=== PATIENT | female | born 1950 | race Caucasian/White ===

== ENCOUNTER 2016-12-15 13:11 | Emergency (ER) | payer MEDICARE, OTHER ==
--- NOTE | 2016-12-15 13:42 | ERPHSYRPT ---
- History of Present Illness Time Seen by Provider: 12/15/16 13:20 Source: patient Patient Subjective Stated Complaint: marylou has had leg swelling in left leg over past two weeeks, has hx of venous insufficiency in both legs Triage Nursing Assessment: pt alert nad orientedx3, gait is somewhats shaky because shes not putting full pressure on left side and right knee is only 7mths out from knee replacement. able to ambulate self from waiting room to bed. pedal pulses present bilateral lower extremities. left leg is swollen and wamr to touch Physician History: CC: left leg swelling Hx: 66 y/o patient of Dr Meenu Villegas. She has left leg swelling worsened over a few weeks. No known injury. She has been sitting a lot with her ill . Hx of osteoarthritis. No hx of venous thromboembolic disease. No chest pain. Some left calf pain. Allergies/Adverse Reactions: esomeprazole [From Nexium] Allergy (Verified 12/15/16 13:18) meloxicam [From Mobic] Allergy (Verified 12/15/16 13:18) Hx Tetanus, Diphtheria Vaccination/Date Given: Yes Hx Influenza Vaccination/Date Given: Yes Hx Pneumococcal Vaccination/Date Given: Yes Immunizations Up to Date: Yes - Review of Systems Constitutional: No Symptoms Respiratory: No Dyspnea Cardiac: Edema (left leg), No Chest Pain Musculoskeletal: No Injury, No Joint Pain Neurological: No Focal Weakness, No Parasthesia All Other Systems: Reviewed and Negative - Past Medical History Pertinent Past Medical History: Yes Neurological History: Migraines, Other Cardiac History: High Cholesterol, Hypertension Musculoskeletal History: Osteoarthritis Other Medical History: right total knee replacement. left hip replacement. - Past Surgical History Past Surgical History: Yes Musculoskeletal: Orthopedic Surgery Female Surgical History: Hysterectomy - Social History Smoking Status: Never smoker Drug Use: none - Nursing Vital Signs Nursing Vital Signs: Initial Vital Signs Temperature 99 F Temperature Source Oral Pulse Rate 73 Respiratory Rate 20 Blood Pressure [] 152/83 Pain Intensity 0 - Physical Exam General Appearance: alert Eyes, Ears, Nose, Throat Exam: normal ENT inspection, moist mucous membranes Neck Exam: normal inspection, non-tender, supple Cardiovascular/Respiratory Exam: normal breath sounds, regular rate/rhythm Gastrointestinal/Abdominal Exam: non-tender, soft Hips Exam: left: non-tender, normal inspection Knees Exam: left knee: non-tender, normal inspection Ankle Exam: left ankle: non-tender, normal inspection Foot Exam: left foot: non-tender, normal inspection Neuro/Tendon Exam: normal sensation, normal motor functions Mental Status Exam: alert, oriented x 3, cooperative Skin Exam: warm, dry, No rash SpO2 Interpretation: normal SpO2: 97 Oxygen Delivery: Room Air Comments: left leg has some diffuse edema, some calf tenderness, no redness. Pulses intact. - Course Nursing assessment & vital signs reviewed: Yes - Radiology Ultrasound Exam left leg Ultrasound: Other (no DVT per Tech. There is calf fluid suggestive of soft tissue injury.) Ordered Tests: Active Orders 24 hr Category Date Time Status VENOUS UNILAT/LIMITED EXTREMIT [US] Stat Exams 12/15/16 13:38 Ordered BMP Stat Lab 12/15/16 13:49 Completed CBC Stat Lab 12/15/16 13:49 Completed Lab/Rad Data: Laboratory Result Diagrams 12/15/16 13:49 12/15/16 13:49 Laboratory Results 12/15/16 12/15/16 Range/Units 13:49 13:49 WBC 8.4 (4.0-10.5) K/mm3 RBC 3.74 L (4.1-5.4) M/mm3 Hgb 10.3 L (12.0-16.0) gm/dl Hct 33.4 L (35-47) % MCV 89.3 (78-100) fl MCH 27.5 (26-32) pg MCHC 30.8 L (32-36) g/dl RDW 14.7 H (11.5-14.0) % Plt Count 407 (150-450) K/mm3 MPV 9.1 (6-9.5) fl Sodium 137 (136-145) mEq/L Potassium 4.1 (3.5-5.1) mEq/L Chloride 102 (98-107) mEq/L Carbon Dioxide 24.6 (21-32) mEq/L Anion Gap 14.6 (5-15) MEQ/L BUN 20 (9-20) mg/dL Creatinine 0.84 (0.55-1.30) mg/dl Estimated GFR > 60 ML/MIN Glucose 118 H (70-110) MG/DL Calcium 9.0 (8.5-10.1) mg/dL - Progress Progress Note: 12/15/16 13:42 Will get venous doppler to rule out DVT. 12/15/16 14:16 Advised ice, rest, aleve. Advised anemia and needs follow up with Dr Villegas. Counseled pt/family regarding: lab results, diagnosis, need for follow-up - Departure Time of Disposition: 14:17 Departure Disposition: Home Clinical Impression: Sprain of left lower leg, Anemia Condition: Stable Critical Care Time: No Referrals: MEENU VILLEGAS [Primary Care Provider] - Instructions: Calf Muscle Strain Additional Instructions: Ice off and on. Rest. Aleve twice a day with food. Call to see Dr Villegas next week for recheck and to discuss anemia.
[2016-12-15 13:59] LABS: Mean Cell Volume 89.3 fl (78-100); Mean Corpuscular Hemoglobin 27.5 pg (26-32); Mean Platelet Volume 9.1 fl (6-9.5); Platelet Count 407 K/mm3 (150-450); Red Blood Count 3.74 M/mm3 (4.1-5.4); Red Cell Distribution Width 14.7 % (11.5-14.0); White Blood Count 8.4 K/mm3 (4.0-10.5)
[2016-12-15 14:02] LABS: ANION GAP 14.6 MEQ/L (5-15); BLOOD UREA NITROGEN 20 mg/dL (9-20); CHLORIDE 102 mEq/L (98-107); Carbon Dioxide 24.6 mEq/L (21-32); Glucose 118 MG/DL (70-110); Potassium 4.1 mEq/L (3.5-5.1); SODIUM 137 mEq/L (136-145)
[2016-12-15 14:31] VITALS: BP 130/70; PULSE 70; O2SAT 100
--- NOTE | 2016-12-15 15:08 | XRAY ---
Indication: Left leg swelling. Two-dimensional sonogram and color Doppler imaging of the major venous vessels of the left leg was performed. Comparison: None No thrombus seen in the examined deep venous vessels of the left leg including greater saphenous vein. Veins demonstrate normal compressibility. Venous waveforms are normal with and without augmentation. There is a elongated fluid collection in the deep soft tissues of the medial calf at least 1.4 cm in thickness. Impression: 1. Left leg negative for DVT. 2. Nonspecific fluid collection in the deep soft tissues of the medial calf. Correlate clinically. Outpatient MRI may yield further information if there remains further clinical concern. Comment: Preliminary report was given.
== END 2016-12-15 14:31 | disposition home or self-care (01) ==
LOC: ED 13:11
DX: S86.912A Strain of unspecified muscle(s) and tendon(s) at lower leg level, left leg, initial encounter (principal); M79.662 Pain in left lower leg; E78.00 Pure hypercholesterolemia, unspecified; I10 Essential (primary) hypertension; Z96.651 Presence of right artificial knee joint; Z96.642 Presence of left artificial hip joint
CPT/HCPCS: 36415; 80048; 85027; 93971; 99283; 99284

== ENCOUNTER 2017-04-22 09:46 | Emergency (ER) | payer MEDICARE, OTHER ==
[2017-04-22] MEDS ORDERED: Sodium Chloride 0.9% 1000 ML 1,000 ML IV STA (10:09)
[2017-04-22] MEDS ORDERED: MORPHINE SULFATE 2 MG INJ IV ONE (10:09)
[2017-04-22] MEDS ORDERED: Zofran 4 MG/2 ML VIAL IV ONE (10:09)
--- NOTE | 2017-04-22 10:11 | ERPHSYRPT ---
- History of Present Illness Time Seen by Provider: 04/22/17 10:05 Historian: patient Exam Limitations: no limitations Patient Subjective Stated Complaint: vomiting for three days. denies diarrhea. hx of stomach problems. states has chronic knee pain and right arm numb. Triage Nursing Assessment: arrives per ems cot. skin w/d, pale, resp easy. vomiting several times a day for three days. denies diarrhea. iv left hand per ems with saline infusing. abd soft, normal bowel sounds. Physician History: 67 y/o female comes to the ER with complaints of diffuse abdominal pain, nausea and vomiting for the past 3 days. Pt admits to having 12 episodes of vomiting today. Pt describes the pain as sharp, constant, 9/10, and pt has not taken any pain meds. Pt says that she has had this type of pain before. Pt denies any fever, chills, constipation, diarrhea, or urinary symptoms. Timing/Duration: day(s) Activities at Onset: none Quality: sharpness Abdominal Pain Onset Location: generalized abdomen Pain Radiation: no radiation Severity of Pain-Max: severe Severity of Pain-Current: severe Modifying Factors: Improves With: nothing Associated Symptoms: nausea, vomiting, weakness Allergies/Adverse Reactions: esomeprazole [From Nexium] Allergy (Verified 12/15/16 13:18) levofloxacin Allergy (Verified 04/22/17 10:28) meloxicam [From Mobic] Allergy (Verified 12/15/16 13:18) olsalazine [From Dipentum] Allergy (Verified 04/22/17 10:53) zolmitriptan [From Zomig] Allergy (Verified 04/22/17 10:53) azithromycin [From Zithromax] Adverse Reaction (Verified 04/22/17 10:53) Home Medications: Atorvastatin Calcium [Lipitor 20MG Tablet] 20 mg PO DAILY 04/22/17 [History] Baicalin/Catechin/Citrated Znc [[id number] Capsule] 1 each PO BID 04/22/17 [ History] Calcium Carbonate [Antacid Calcium] 500 mg PO BID 04/22/17 [History] Calcium Carbonate/Vitamin D3 [Calcium 500 + Vit D 200 Tablet] 1 each PO DAILY [History] Famotidine 40 mg PO DAILY 04/22/17 [History] Hydrocortisone [Cortef] 30 mg PO BID 04/22/17 [History] Lidocaine HCl 2% Jelly [Xylocaine 2% JELLY] 5 ml MM BID 04/22/17 [History] Magnesium Oxide 500 mg PO DAILY 04/22/17 [History] Metoprolol Tartrate 25 mg PO BID 04/22/17 [History] Milk Thistle 200 mg PO DAILY 04/22/17 [History] Multivitamin [Multivitamins] 1 each PO DAILY 04/22/17 [History] Pantoprazole Sodium [Protonix] 40 mg PO DAILY 04/22/17 [History] Rizatriptan Benzoate [Maxalt] 10 mg PO UD 04/22/17 [History] Topiramate 100 mg [Topamax 100 MG] 100 mg PO HS 04/22/17 [History] Tramadol HCl 50 mg [Ultram 50 mg] 50 mg PO TID 04/22/17 [History] Zolpidem Tartrate [Ambien] 5 mg PO HS 04/22/17 [History] Hx Tetanus, Diphtheria Vaccination/Date Given: Yes Hx Influenza Vaccination/Date Given: No (2015) Hx Pneumococcal Vaccination/Date Given: Yes Immunizations Up to Date: No - Review of Systems Constitutional: No Fever, No Chills Eyes: No Symptoms Ears, Nose, & Throat: No Symptoms Respiratory: No Cough, No Dyspnea Cardiac: No Chest Pain, No Edema, No Syncope Abdominal/Gastrointestinal: Abdominal Pain, Nausea, Vomiting, No Diarrhea, No Constipation, No Hematemesis Genitourinary Symptoms: No Dysuria Musculoskeletal: No Back Pain, No Neck Pain Skin: No Rash Neurological: No Dizziness, No Focal Weakness, No Sensory Changes Psychological: No Symptoms Endocrine: No Symptoms All Other Systems: Reviewed and Negative - Past Medical History Pertinent Past Medical History: Yes Neurological History: Migraines, Other Cardiac History: High Cholesterol, Hypertension Musculoskeletal History: Osteoarthritis GI Medical History: Ulcer Other Medical History: right total knee replacement. left hip replacement. - Past Surgical History Past Surgical History: Yes Musculoskeletal: Orthopedic Surgery Female Surgical History: Hysterectomy - Social History Smoking Status: Never smoker Exposure to second hand smoke: Yes Drug Use: none Patient Lives Alone: No - Nursing Vital Signs Nursing Vital Signs: Initial Vital Signs Temperature 98 F 04/22/17 09:47 Pulse Rate 97 H 04/22/17 09:47 Respiratory Rate 16 04/22/17 09:47 Blood Pressure 131/91 04/22/17 09:47 O2 Sat by Pulse Oximetry 100 04/22/17 09:47 Pain Scale Pain Intensity 5 - Physical Exam General Appearance: no apparent distress, alert Eye Exam: PERRL/EOMI, eyes nml inspection Ears, Nose, Throat Exam: normal ENT inspection, pharynx normal, moist mucous membranes Neck Exam: normal inspection, non-tender, supple, full range of motion Respiratory Exam: normal breath sounds, lungs clear, No respiratory distress Cardiovascular Exam: regular rate/rhythm, normal heart sounds Gastrointestinal/Abdomen Exam: soft, normal bowel sounds, tenderness, distention , No mass Back Exam: normal inspection, normal range of motion, No CVA tenderness, No vertebral tenderness Extremity Exam: normal inspection, normal range of motion, pelvis stable Neurologic Exam: alert, oriented x 3, cooperative, normal mood/affect, nml cerebellar function, sensation nml, No motor deficits Skin Exam: normal color, warm, dry SpO2: 100 Oxygen Delivery: Room Air - Course Nursing assessment & vital signs reviewed: Yes Ordered Tests: Active Orders 24 hr Category Date Time Status IV Insertion STAT Care 04/22/17 10:09 Active ABDOMEN AND PELVIS W CONTRAST [CT] Stat Exams 04/22/17 10:09 Taken AMYLASE Stat Lab 04/22/17 10:35 Completed CBC W DIFF Stat Lab 04/22/17 10:35 Completed CMP Stat Lab 04/22/17 10:35 Completed CULTURE,URINE Stat Lab 04/22/17 10:50 Received LIPASE Stat Lab 04/22/17 10:35 Completed Lactic Acid Stat Lab 04/22/17 10:09 Completed UA W/ MICROSCOPIC Stat Lab 04/22/17 10:50 Completed Medication Summary Discontinued Medications Generic Name Dose Route Start Last Admin Trade Name Freq PRN Reason Stop Dose Admin Sodium Chloride 1,000 mls @ 999 mls/hr 04/22/17 10:09 04/22/17 10:39 Sodium Chloride 0.9% 1000 Ml IV 04/22/17 11:09 999 mls/hr .Q1H1M STA Administration Sodium Chloride Confirm 04/22/17 10:29 Sodium Chloride 0.9% 1000 Ml Administered 04/22/17 10:30 Dose 1,000 mls @ ud .ROUTE .STK-MED ONE Potassium Chloride 20 meq in 100 mls @ 50 mls/hr 04/22/17 11:23 04/22/17 11: 31 Potassium Chloride 20 Meq In Water 100ml IV 04/22/17 13:22 50 mls/hr STAT ONE Administration Potassium Chloride Confirm 04/22/17 11:30 Potassium Chloride 20 Meq In Water 100ml Administered 04/22/17 11:31 Dose 100 mls @ ud IV .STK-MED ONE Sodium Chloride Confirm 04/22/17 12:27 Sodium Chloride 0.9% 1000 Ml Administered 04/22/17 12:28 Dose 1,000 mls @ ud .ROUTE .STK-MED ONE Ketorolac Tromethamine 30 mg 04/22/17 13:06 04/22/17 13:10 Toradol 30 Mg Injection IV 04/22/17 13:07 30 mg STAT ONE Administration Ketorolac Tromethamine Confirm 04/22/17 13:09 Toradol 30 Mg Injection Administered 04/22/17 13:10 Dose 30 mg .ROUTE .STK-MED ONE Morphine Sulfate 2 mg 04/22/17 10:09 04/22/17 10:38 Morphine Sulfate 2 Mg Inj IV 04/22/17 10:10 2 mg STAT ONE Administration Morphine Sulfate Confirm 04/22/17 10:29 Morphine Sulfate 2 Mg Inj Administered 04/22/17 10:30 Dose 2 mg .ROUTE .STK-MED ONE Ondansetron HCl 4 mg 04/22/17 10:09 04/22/17 10:38 Zofran 4 Mg/2 Ml Vial IV 04/22/17 10:10 4 mg STAT ONE Administration Ondansetron HCl Confirm 04/22/17 10:28 Zofran 4 Mg/2 Ml Vial Administered 04/22/17 10:29 Dose 4 mg .ROUTE .STK-MED ONE Lab/Rad Data: Laboratory Result Diagrams 04/22/17 10:35 04/22/17 10:35 Laboratory Results 04/22/17 04/22/17 04/22/17 Range/Units 10:50 10:35 10:35 WBC 9.8 (4.0-10.5) K/mm3 RBC 4.10 (4.1-5.4) M/mm3 Hgb 11.1 L (12.0-16.0) gm/dl Hct 36.3 (35-47) % MCV 88.5 (78-100) fl MCH 27.0 (26-32) pg MCHC 30.6 L (32-36) g/dl RDW 16.1 H (11.5-14.0) % Plt Count 384 (150-450) K/mm3 MPV 9.3 (6-9.5) fl Gran % 72.9 H (36.0-66.0) % Lymphocytes % 18.5 L (24.0-44.0) % Monocytes % 7.5 (0.0-12.0) % Eosinophils % 0.8 (0.00-5.0) % Basophils % 0.3 (0.0-0.4) % Basophils # 0.03 (0-0.4) Sodium 143 (136-145) mEq/L Potassium 2.8 L* (3.5-5.1) mEq/L Chloride 105 (98-107) mEq/L Carbon Dioxide 24.6 (21-32) mEq/L Anion Gap 16.7 H (5-15) MEQ/L BUN 12 (9-20) mg/dL Creatinine 0.67 (0.55-1.30) mg/dl Estimated GFR > 60 ML/MIN Glucose 83 (70-110) MG/DL Lactic Acid (0.4-2.0) Calcium 8.8 (8.5-10.1) mg/dL Total Bilirubin 0.40 (0.2-1.0) mg/dL AST 15 (15-37) U/L ALT 20 (12-78) U/L Alkaline Phosphatase 75 (46-116) U/L Serum Total Protein 6.4 (6.4-8.2) gm/dL Albumin 3.6 (3.4-5.0) g/dL Amylase 36 (25-115) U/L Lipase 166 (73-393) U/L Ur Collection Type CCMS Urine Color YELLOW (YELLOW) Urine Appearance CLEAR (CLEAR) Urine pH 8.0 (5-6) Ur Specific [place] 1.005 (1.005-1.025) Urine Protein NEGATIVE (Negative) Urine Ketones LARGE (NEGATIVE) Urine Blood 5-10 (0-5) Luke/ul Urine Nitrite NEGATIVE (NEGATIVE) Urine Bilirubin NEGATIVE (NEGATIVE) Urine Urobilinogen NORMAL (0-1) mg/dL Ur Leukocyte Esterase TRACE (NEGATIVE) Urine Microscopic RBC 0-2 (0-2) /HPF Urine Microscopic WBC 0-2 (0-5) /HPF Ur Epithelial Cells RARE (FEW) /HPF Urine Bacteria FEW (NEGATIVE) /HPF Urine Mucus SLIGHT (NEGATIVE) /HPF Urine Culture Reflexed YES (NO) Urine Glucose NEGATIVE (NEGATIVE) mg/dL Specimen Received 1055 04/22/17 04/22/17 Range/Units 10:09 WBC (4.0-10.5) K/mm3 RBC (4.1-5.4) M/mm3 Hgb (12.0-16.0) gm/dl Hct (35-47) % MCV (78-100) fl MCH (26-32) pg MCHC (32-36) g/dl RDW (11.5-14.0) % Plt Count (150-450) K/mm3 MPV (6-9.5) fl Gran % (36.0-66.0) % Lymphocytes % (24.0-44.0) % Monocytes % (0.0-12.0) % Eosinophils % (0.00-5.0) % Basophils % (0.0-0.4) % Basophils # (0-0.4) Sodium (136-145) mEq/L Potassium (3.5-5.1) mEq/L Chloride (98-107) mEq/L Carbon Dioxide (21-32) mEq/L Anion Gap (5-15) MEQ/L BUN (9-20) mg/dL Creatinine (0.55-1.30) mg/dl Estimated GFR ML/MIN Glucose (70-110) MG/DL Lactic Acid 1.1 (0.4-2.0) Calcium (8.5-10.1) mg/dL Total Bilirubin (0.2-1.0) mg/dL AST (15-37) U/L ALT (12-78) U/L Alkaline Phosphatase (46-116) U/L Serum Total Protein (6.4-8.2) gm/dL Albumin (3.4-5.0) g/dL Amylase (25-115) U/L Lipase (73-393) U/L Ur Collection Type Urine Color (YELLOW) Urine Appearance (CLEAR) Urine pH (5-6) Ur Specific [place] (1.005-1.025) Urine Protein (Negative) Urine Ketones (NEGATIVE) Urine Blood (0-5) Luke/ul Urine Nitrite (NEGATIVE) Urine Bilirubin (NEGATIVE) Urine Urobilinogen (0-1) mg/dL Ur Leukocyte Esterase (NEGATIVE) Urine Microscopic RBC (0-2) /HPF Urine Microscopic WBC (0-5) /HPF Ur Epithelial Cells (FEW) /HPF Urine Bacteria (NEGATIVE) /HPF Urine Mucus (NEGATIVE) /HPF Urine Culture Reflexed (NO) Urine Glucose (NEGATIVE) mg/dL Specimen Received - Progress Progress: improved Progress Note: 04/22/17 14:[address] abd/pelvis shows gastric wall thickening and constipation. The patient has a K of 2.8. The rest of the labs are within normal limits. The [facility] and the patient has been accepted by ER doctor, Dr Nuñez [facility]. - Departure Time of Disposition: 14:32 Departure Disposition: Transfer Clinical Impression: Abdominal pain Qualifiers: Abdominal location: unspecified location Qualified Code(s): R10.9 - Unspecified abdominal pain Condition: Stable Critical Care Time: Yes Critical Care Time(excluding separately billable procedures): 75-104 minutes Referrals: CAROL COX [Primary Care Provider] -
[2017-04-22] MEDS ORDERED: Zofran 4 MG/2 ML VIAL ONE (10:28)
[2017-04-22] MEDS ORDERED: MORPHINE SULFATE 2 MG INJ ONE (10:29)
[2017-04-22] MEDS ORDERED: Sodium Chloride 0.9% 1000 ML 1,000 ML ONE ×2 (10:29→12:27)
[2017-04-22] MEDS ORDERED: Sodium Chloride 0.9% 1000 ML 1,000 ML IV SCH (10:35)
[2017-04-22 10:55] LABS: BASOPHIL % 0.3 % (0.0-0.4); Eosinophil % 0.8 % (0.00-5.0); Granulocytes % 72.9 % (36.0-66.0); Lymphocytes % 18.5 % (24.0-44.0); Mean Cell Volume 88.5 fl (78-100); Mean Platelet Volume 9.3 fl (6-9.5); Monocytes % 7.5 % (0.0-12.0); Platelet Count 384 K/mm3 (150-450); Red Cell Distribution Width 16.1 % (11.5-14.0); White Blood Count 9.8 K/mm3 (4.0-10.5)
[2017-04-22 11:07] LABS: ALBUMIN 3.6 g/dL (3.4-5.0); ALKALINE PHOSPHATASE 75 U/L (46-116); ANION GAP 16.7 MEQ/L (5-15); BLOOD UREA NITROGEN 12 mg/dL (9-20); CHLORIDE 105 mEq/L (98-107); Carbon Dioxide 24.6 mEq/L (21-32); Glucose 83 MG/DL (70-110); LIPASE 166 U/L (73-393); SGOT/AST 15 U/L (15-37); SGPT/ALT 20 U/L (12-78); SODIUM 143 mEq/L (136-145); Total Protein 6.4 gm/dL (6.4-8.2)
[2017-04-22 11:09] LABS: Potassium 2.8 mEq/L (3.5-5.1)
[2017-04-22 11:16] LABS: Bilirubin NEGATIVE (NEGATIVE); Collection Type CCMS; Glucose NEGATIVE (NEGATIVE); Leukocyte Esterase TRACE (NEGATIVE)
[2017-04-22 11:17] LABS: COMPLETE URINE MICROSCOPIC? YES
[2017-04-22 11:22] LABS: ADD URINE CULTURE? YES (NO); Bacteria FEW /HPF (NEGATIVE); Epithelial Cells RARE /HPF (FEW); Mucus SLIGHT /HPF (NEGATIVE); WBC 0-2 /HPF (0-5)
[2017-04-22] MEDS ORDERED: POTASSIUM CHLORIDE 20 mEq IN WATER 100ML 20 MEQ/100 ML BAG IV ONE (11:23)
[2017-04-22] MEDS ORDERED: POTASSIUM CHLORIDE 20 mEq IN WATER 100ML 100 ML IV ONE (11:30)
[2017-04-22] MEDS ORDERED: TORAdol 30 mg Injection IV ONE (13:06)
[2017-04-22] MEDS ORDERED: TORAdol 30 mg Injection ONE (13:09)
[2017-04-22 14:19] VITALS: BP 138/52; PULSE 93
[2017-04-22 14:33] VITALS: O2SAT 100
--- NOTE | 2017-04-22 20:18 | XRAY ---
Indication: Upset stomach. Nausea and vomiting. History of ulcers. Multiple contiguous axial images obtained through the abdomen and pelvis using 80 cc Isovue 370 contrast only. Comparison: None. Lung bases demonstrates minimal bibasilar dependent atelectasis. Heart is not enlarged. Stomach is mildly fluid distended with gastric wall thickening either from incomplete distention versus gastritis. Descending duodenal diverticulum. Noncontrasted stomach and bowel loops appear nonobstructed. Moderate diffuse scattered colonic fecal debris throughout. No free fluid/air. Previous hysterectomy. Remaining liver, gallbladder, pancreas, spleen, adrenal glands, kidneys, ureters, and bladder appear unremarkable. Minimal aortoiliac calcifications. No AAA or pathological retroperitoneal lymphadenopathy. Osseous structures intact with moderate degenerative changes throughout spine, double curvature scoliosis, and left hip arthroplasty with bipolar prosthesis producing beam artifact. Impression: 1. Fluid distended stomach with wall thickening either incomplete distention versus gastritis. 2. Fecal stasis without obstruction. 3. Descending duodenal diverticulum. Comment: Preliminary interpretation was made by [facility]. No discrepancy. CTDI 17.73
== END 2017-04-22 15:29 | disposition short-term general hospital (02) ==
LOC: ED 09:46
DX: R10.9 Unspecified abdominal pain (principal); R11.2 Nausea with vomiting, unspecified; R53.1 Weakness; Z79.899 Other long term (current) drug therapy; E78.00 Pure hypercholesterolemia, unspecified; I10 Essential (primary) hypertension
CPT/HCPCS: 36415; 74177; 80053; 81000; 82150; 83605; 83690; 85025; 87086; 96360; 96361; 96365; 96375; 99285; J1885; J2270; J2405; J3480

== ENCOUNTER 2020-05-02 07:38 | Observation (INO) | payer MEDICARE, OTHER ==
[2020-05-02] MEDS ORDERED: MORPHINE SULFATE 4 MG INJ IM ONE (08:02)
[2020-05-02] MEDS ORDERED: Cyclobenzaprine 10 MG PO ONE (08:02)
--- NOTE | 2020-05-02 08:07 | ERPHSYRPT ---
- History of Present Illness Time Seen by Provider: 05/02/20 07:50 Source: patient, EMS Exam Limitations: no limitations Patient Subjective Stated Complaint: PT HERE FOR LOWER BACK PAIN SINCE SUNDAY AFTER WORKING OUTSIDE, SHE ASLO STATES PAIN GOING DOWN BOTH LEGS, SHE HAS CHRONIC BACK PAIN., Triage Nursing Assessment: PT ARRIVED PER AMBULANCE, ALERT, FACE MASK ON, RESP EASY. SKIN W/D/P.PT MOANING, REFUSES TO MOVE WITHOUT MUCH ENCOURAGMENT AND HELP. NO SWELING OR BRUISING NOTED Physician History: 70 years old female with history of chronic back pain, multiple surgeries done in the past in the cervical/thoracic spines with chronic low back pain presented in the ER with worsening low back pain for the last 3 days after she worked in the yard quite a bit. Reports initially it was a stiffness of lower back and g radually worsening to the point she could not get up this morning. She denies loss of bowel or bladder control. No numbness tingling of focal weakness of lower extremities but because of pain she is having difficulty movements. No fall or direct trauma to lower back. Timing/Duration: day(s) (3), gradual onset, worse Quality: sharp Back Pain Location: lumbar spine Back Pain Radiation: buttocks, upper legs Severity of Pain-Max: severe Severity of Pain-Current: severe Modifying Factors: Improves With: immobilization, pain medication, rest. Worsens With: movement Associated Symptoms: lower back pain, muscle spasms, No fever, No chills, No urinary incontinence, No loss of bowel control, No problems urinating, No light- headedness, No numbness in legs/feet, No weakness, No sensory/motor loss Allergies/Adverse Reactions: esomeprazole [From Nexium] Allergy (Verified 05/02/20 07:40) levofloxacin Allergy (Verified 05/02/20 07:40) meloxicam [From Mobic] Allergy (Verified 05/02/20 07:40) olsalazine [From Dipentum] Allergy (Verified 05/02/20 07:40) zolmitriptan [From Zomig] Allergy (Verified 05/02/20 07:40) azithromycin [From Zithromax] Adverse Reaction (Verified 05/02/20 07:40) Home Medications: Atorvastatin Calcium [Lipitor 20MG Tablet] 20 mg PO DAILY 04/22/17 [History] Baicalin/Catechin/Citrated Znc [Oehhdcy320 Capsule] 1 each PO BID 04/22/17 [History] Calcium Carbonate [Antacid Calcium] 500 mg PO BID 04/22/17 [History] Calcium Carbonate/Vitamin D3 [Calcium 500 + Vit D 200 Tablet] 1 each PO DAILY 04/22/17 [History] Famotidine 40 mg PO DAILY 04/22/17 [History] Hydrocortisone [Cortef] 30 mg PO BID 04/22/17 [History] Lidocaine HCl 2% Jelly [Xylocaine 2% JELLY] 5 ml MM BID 04/22/17 [History] Magnesium Oxide 500 mg PO DAILY 04/22/17 [History] Metoprolol Tartrate 25 mg PO BID 04/22/17 [History] Milk Thistle 200 mg PO DAILY 04/22/17 [History] Multivitamin [Multivitamins] 1 each PO DAILY 04/22/17 [History] Pantoprazole Sodium [Protonix] 40 mg PO DAILY 04/22/17 [History] Rizatriptan Benzoate [Maxalt] 10 mg PO UD 04/22/17 [History] Topiramate 100 mg [Topamax 100 MG] 100 mg PO HS 04/22/17 [History] Tramadol HCl 50 mg [Ultram 50 mg] 50 mg PO TID 04/22/17 [History] Zolpidem Tartrate [Ambien] 5 mg PO HS 04/22/17 [History] Hx Tetanus, Diphtheria Vaccination/Date Given: Yes Hx Influenza Vaccination/Date Given: Yes Hx Pneumococcal Vaccination/Date Given: Yes Immunizations Up to Date: Yes Travel Risk - International Travel Have you traveled outside of the country in past 3 weeks: No - Coronavirus Screening Are you exhibiting any of the following symptoms?: No Close contact with a COVID-19 positive Pt in past 14-21 Days: No - Review of Systems Constitutional: No Symptoms Eyes: No Symptoms Ears, Nose, & Throat: No Symptoms Respiratory: No Symptoms Cardiac: No Symptoms Abdominal/Gastrointestinal: No Symptoms Genitourinary Symptoms: No Symptoms Musculoskeletal: Back Pain Skin: No Symptoms Neurological: No Symptoms Psychological: No Symptoms Endocrine: No Symptoms Hematologic/Lymphatic: No Symptoms Immunological/Allergic: No Symptoms - Past Medical History Pertinent Past Medical History: Yes Neurological History: Migraines Cardiac History: High Cholesterol, Hypertension Respiratory History: Pneumonia Endocrine Medical History: No Pertinent History Musculoskeletal History: Degenerative Disk Disease, Osteoarthritis GI Medical History: Ulcer Other Medical History: SURGICAL HX NOTED ABOVE. PATIENT REPORTS HX OF LUMBAR FRACTURE IN THE 80s AND BY DESCRIPTION WAS TRANSVERSE PROCESS - NO SURGERY, WAS BRACED. HX OF ADRENAL INSUFFICIENCY AND ANEMIA. CHRONIC BACK PAIN - Past Surgical History Past Surgical History: Yes Musculoskeletal: Orthopedic Surgery Female Surgical History: Hysterectomy - Social History Smoking Status: Never smoker Exposure to second hand smoke: Yes Drug Use: none Patient Lives Alone: No - Female History Hx Last Menstrual Period: POST Hx Now: No - Nursing Vital Signs Nursing Vital Signs: Initial Vital Signs Temperature 98.5 F 05/02/20 07:41 Pulse Rate 96 H 05/02/20 07:41 Respiratory Rate 18 05/02/20 07:41 Blood Pressure 166/116 05/02/20 07:41 O2 Sat by Pulse Oximetry 99 05/02/20 07:41 Pain Scale Pain Intensity [Back] 10 Pain Intensity 9 - Physical Exam General Appearance: no apparent distress Eye Exam: PERRL/EOMI, eyes nml inspection Ears, Nose, Throat Exam: normal ENT inspection, pharynx normal Neck Exam: normal inspection, supple, full range of motion Respiratory Exam: normal breath sounds, lungs clear Cardiovascular Exam: regular rate/rhythm, normal heart sounds Gastrointestinal Exam: soft, normal bowel sounds, No tenderness Back Exam: vertebral tenderness, decreased range of motion, muscle spasm, point tenderness (Lumbar), No normal range of motion Extremity Exam: normal inspection, pelvis stable, other (Limited range of motion bilateral lower extremities because of pain lower back.) Neurologic Exam: alert, oriented x 3, cooperative, ophthalmologist retina specialist II-XII nml as tested, normal mood/affect, sensation nml, No nml station & gait, No motor deficits Skin Exam: normal color SpO2 Interpretation: normal SpO2: 99 O2 Delivery: Room Air Ordered Tests: Active Orders 24 hr Category Date Time Status IV Insertion STAT Care 05/02/20 09:14 Active LUMBAR SPINE W/O [CT] Stat Exams 05/02/20 08:41 Taken CBC W DIFF Stat Lab 05/02/20 10:09 Received CMP Stat Lab 05/02/20 10:09 Received UA W/RFX UR CULTURE Stat Lab 05/02/20 09:15 Ordered Medication Summary Discontinued Medications Generic Name Dose Route Start Last Admin Trade Name Alvaro PRN Reason Stop Dose Admin Cyclobenzaprine HCl 10 mg 05/02/20 08:02 05/02/20 08:14 Cyclobenzaprine 10 Mg PO 05/02/20 08:03 10 mg STAT ONE Administration Cyclobenzaprine HCl Confirm 05/02/20 08:13 Cyclobenzaprine 10 Mg Administered 05/02/20 08:14 Dose 10 mg .ROUTE .STK-MED ONE Morphine Sulfate 4 mg 05/02/20 08:02 05/02/20 08:14 Morphine Sulfate 4 Mg Inj IM 05/02/20 08:03 4 mg STAT ONE Administration Morphine Sulfate Confirm 05/02/20 08:13 Morphine Sulfate 4 Mg Inj Administered 05/02/20 08:14 Dose 4 mg .ROUTE .STK-MED ONE Morphine Sulfate 4 mg 05/02/20 09:14 05/02/20 09:24 Morphine Sulfate 4 Mg Inj IV 05/02/20 09:15 4 mg STAT ONE Administration Morphine Sulfate Confirm 05/02/20 09:18 Morphine Sulfate 4 Mg Inj Administered 05/02/20 09:19 Dose 4 mg .ROUTE .STK-MED ONE Ondansetron HCl 4 mg 05/02/20 09:14 05/02/20 09:25 Zofran 4 Mg/2 Ml Vial IV 05/02/20 09:15 4 mg STAT ONE Administration Ondansetron HCl Confirm 05/02/20 09:18 Zofran 4 Mg/2 Ml Vial Administered 05/02/20 09:19 Dose 4 mg .ROUTE .STK-MED ONE - Progress Progress: pain not gone completely, re-examined Progress Note: 05/02/20 10:27 70 years old with history of chronic back pain is evaluated in the ER for worsening low back pain for the last 3 days. She has intact neuro and lower extremities. Good sensations in her perineum. No loss of bowel or bladder control. She is given morphine x2 but still have pain. I have obtained CT lumbar spine which showed multilevel degenerative changes with some mild to moderate disc herniation. She also has a partially calcified mass in the mid and subarticular right canal extending superiorly from T12-L1 disc space to mid body of T12 suggesting chronic disc herniation with cephalad extrusion with with differential of meningioma needing further evaluation with MRI. Discussed with Dr. Alcala and patient is being admitted for observation. Discussed with : Mundo Will see patient in: hospital (observation) Counseled pt/family regarding: lab results, diagnosis, rad results - Departure Departure Disposition: Observation Clinical Impression: Acute exacerbation of chronic low back pain Condition: Stable Critical Care Time: No Referrals: PAOLO LR MD [Primary Care Provider] -
[2020-05-02] MEDS ORDERED: Cyclobenzaprine 10 MG ONE (08:13)
[2020-05-02] MEDS ORDERED: MORPHINE SULFATE 4 MG INJ ONE ×2 (08:13→09:18)
[2020-05-02] MEDS ORDERED: Zofran 4 MG/2 ML VIAL IV ONE (09:14)
[2020-05-02] MEDS ORDERED: MORPHINE SULFATE 4 MG INJ IV ONE (09:14)
[2020-05-02] MEDS ORDERED: Zofran 4 MG/2 ML VIAL ONE (09:18)
[2020-05-02 10:28] LABS: Hematocrit 40.5 % (35-47); Hemoglobin 13.5 gm/dl (12.0-16.0); Mean Cell Volume 95.7 fl (78-100); Mean Corpuscular Hemoglobin 31.9 pg (26-32); Mean Corpuscular Hgb Concent. 33.3 g/dl (32-36); Mean Platelet Volume 8.7 fl (7.5-11.0); Platelet Count 315 K/mm3 (150-450); Red Blood Count 4.23 M/mm3 (4.1-5.4); Red Cell Distribution Width 14.7 % (11.5-14.0); White Blood Count 13.2 K/mm3 (4.0-10.5)
[2020-05-02 10:31] LABS: ALBUMIN 4.2 g/dL (3.5-5.0); ALKALINE PHOSPHATASE 68 U/L (38-126); ANION GAP 9.6 MEQ/L (5-15); BLOOD UREA NITROGEN 20 mg/dL (7-17); CHLORIDE 100 mmol/L (98-107); Calcium 9.4 mg/dL (8.4-10.2); Carbon Dioxide 28 mmol/L (22-30); Creatinine 1 0.55 mg/dL (0.52-1.04); EST GLOMERULAR FILTRATION RATE > 60.0 ML/MIN; Glucose 97 mg/dL (74-106); Potassium 3.7 mmol/L (3.5-5.1); SGOT/AST 26 U/L (14-36); SGPT/ALT 23 U/L (0-35); SODIUM 134 mmol/L (137-145); Total Protein 6.9 g/dL (6.3-8.2)
[2020-05-02] MEDS ORDERED: DECADRON 10MG INJ. IV ONE (10:32)
[2020-05-02] MEDS ORDERED: DECADRON 10MG INJ. ONE (11:02)
[2020-05-02] MEDS ORDERED: TYLENOL 325 MG PO PRN (11:36)
[2020-05-02] MEDS ORDERED: Zofran 4 MG/2 ML VIAL IV PRN (11:36)
[2020-05-02] MEDS ORDERED: DUONEB 0.5-3 MG/3 ml Neb IH PRN (11:36)
[2020-05-02] MEDS: MORPHINE SULFATE 4 MG INJ IV PRN ×3 (13:47→22:42)
[2020-05-02 13:54] LABS: Lymphocytes 7 % (24-44); Monocyte 3 % (0.0-12.0); Neutrophils 90 % (36.0-66.0); Platelet Estimate NORMAL (NORMAL); Total Cells Counted 100; Toxic Granulation 1+
[2020-05-02 15:05] LABS: Appearance SLIGHTLY CLOUDY (CLEAR); Bilirubin NEGATIVE (NEGATIVE); Blood MODERATE Ery/ul (0-5); Glucose NEGATIVE (NEGATIVE); Ketones TRACE (NEGATIVE); Leukocyte Esterase NEGATIVE (NEGATIVE); Mucus SLIGHT /HPF (NEGATIVE); Nitrite NEGATIVE (NEGATIVE); Protein,Urine Dip NEGATIVE (Negative); Specific Gravity 1.014 (1.005-1.025); Urobilinogen NEGATIVE mg/dL (0-1)
[2020-05-02] MEDS ORDERED: Duragesic 75 MCG Patch TD SCH (15:45)
[2020-05-02] MEDS ORDERED: SUBLIMAZE 100 MCG/2 ML IV ONE (15:46)
--- NOTE | 2020-05-02 16:23 | XRAY ---
Indication: Low back pain radiating both legs. No known injury. Multiple contiguous axial images obtained through the lumbar spine. Sagittal and coronal reformatted images obtained. Comparison: CT abdomen/pelvis April 22, 2017. Osseous structures remain demineralized. Axial images negative for acute fracture or suspicious bony lesions. There remains mild/moderate multilevel degenerative disc disease of the visualized thoracolumbar spine with progressive worsening multilevel degenerative vacuum disc phenomena. Stable bilateral L4-S1 degenerative facet arthropathy. T12-L1 level demonstrates stable central extra thecal calcification effacing the thecal sac either chronic calcified disc protrusion/herniation versus calcified meningioma. Sagittal and coronal reformatted images demonstrate stable moderate levorotoscoliosis centered at L1, multilevel disc space loss, and minimal grade 1 L4 spondylolisthesis. No acute compression fracture. Visualized noncontrasted soft tissues again demonstrates minimal aortic calcifications. There has been interval gastric bypass surgery. Impression: 1. Progressive worsening multilevel degenerative spondylosis better evaluated with outpatient MRI. 2. Stable T12-L1 extra thecal calcification either chronic calcified disc protrusion/herniation versus calcified meningioma. MRI may yield further information if clinically warranted. 3. Stable levorotoscoliosis and grade 1 L4 spondylolisthesis. 4. Negative acute fracture. Comment: Preliminary interpretation was made by [facility]. No critical discrepancy.
[2020-05-02] MEDS ORDERED: Duragesic 25MCG Patch TD SCH (18:00)
[2020-05-02] MEDS: Duragesic 50MCG Patch TD SCH ×2 (18:44→19:48)
[2020-05-02] MEDS ORDERED: ULTRAM 50 MG PO PRN (20:35)
[2020-05-02] MEDS ORDERED: Pepcid 20 MG VIAL IV SCH (22:00)
[2020-05-02] MEDS: Ambien 5 MG Tablet PO SCH (22:35)
[2020-05-02] MEDS: HYDROCORTISONE PO SCH (22:35)
[2020-05-02] MEDS: Lopressor 25MG Tab PO SCH (22:35)
[2020-05-02] MEDS: ZOCOR 20MG PO SCH (22:36)
[2020-05-03] MEDS: MORPHINE SULFATE 4 MG INJ IV PRN ×3 (04:56→14:26)
[2020-05-03 05:13] LABS: Absolute Neutrophil Ct (ANC) 9.76 (1.4-6.9); BASOPHIL % 0.1 % (0.0-0.4); Basophil (Absolute #) 0.01 (0-0.4); Eosinophil (Absolute #) 0 (0-0.5); Hematocrit 41.6 % (35-47); Hemoglobin 13.3 gm/dl (12.0-16.0); Lymphocyte (Absolute #) 0.63 (1.0-4.6); Lymphocytes % 5.5 % (24.0-44.0); Mean Cell Volume 97.4 fl (78-100); Mean Corpuscular Hemoglobin 31.1 pg (26-32); Mean Platelet Volume 8.6 fl (7.5-11.0); Monocyte (Absolute #) 0.96 (0.0-1.3); Monocytes % 8.5 % (0.0-12.0); Neutrophil % 85.9 % (36.0-66.0); Platelet Count 299 K/mm3 (150-450); Red Blood Count 4.27 M/mm3 (4.1-5.4); Red Cell Distribution Width 15.1 % (11.5-14.0); White Blood Count 11.4 K/mm3 (4.0-10.5)
[2020-05-03 06:04] LABS: ALBUMIN 4.1 g/dL (3.5-5.0); ALKALINE PHOSPHATASE 56 U/L (38-126); ANION GAP 9.4 MEQ/L (5-15); BLOOD UREA NITROGEN 21 mg/dL (7-17); CHLORIDE 99 mmol/L (98-107); Calcium 9.7 mg/dL (8.4-10.2); Carbon Dioxide 30 mmol/L (22-30); Creatinine 1 0.51 mg/dL (0.52-1.04); EST GLOMERULAR FILTRATION RATE > 60.0 ML/MIN; Glucose 133 mg/dL (74-106); SGOT/AST 28 U/L (14-36); SGPT/ALT 22 U/L (0-35); SODIUM 132 mmol/L (137-145); Total Protein 6.9 g/dL (6.3-8.2)
[2020-05-03 06:19] LABS: Potassium 5.6 mmol/L (3.5-5.1)
[2020-05-03] MEDS ORDERED: LIDOCAINE TP SCH (08:00)
[2020-05-03] MEDS ORDERED: MEDICATION INTERVENTION MC SCH (08:00)
[2020-05-03] MEDS ORDERED: NON-FORMULARY ITEM (Rizatriptan Benzoate [Maxalt] 10 MG) PO SCH (08:00)
[2020-05-03] MEDS ORDERED: CALCIUM PO SCH (10:00)
[2020-05-03] MEDS ORDERED: Pepcid 20 MG PO SCH (10:00)
[2020-05-03] MEDS ORDERED: HYDROCORTISONE 30 MG PO SCH (10:00)
[2020-05-03] MEDS ORDERED: MAGNESIUM OXIDE 500 MG PO SCH (10:00)
[2020-05-03] MEDS ORDERED: NON-FORMULARY ITEM (Famotidine [Famotidine] 40 MG) PO SCH (10:00)
[2020-05-03] MEDS ORDERED: NON-FORMULARY ITEM (Multivitamin [Multivitamins] 1 EACH) PO SCH (10:00)
[2020-05-03] MEDS ORDERED: MULTIVITS MIN PO SCH (10:00)
[2020-05-03] MEDS ORDERED: [UNRECOGNIZED DRUG - OTHER] PO SCH (10:00)
[2020-05-03] MEDS: HYDROCORTISONE PO SCH ×2 (11:15→22:14)
--- NOTE | 2020-05-03 11:15 | XRAY ---
Indication: [facility] placement. Comparison: None Portable chest clear. Heart is not enlarged for AP portable technique. Bony thorax demonstrates significant double curvature scoliosis, mild bony degenerative changes, and incompletely visualized cervical thoracic posterior fusion hardware. Impression: Nonacute chest with chronic features.
[2020-05-03] MEDS: Calcium 500MG W/Vit D Tablet PO SCH ×2 (11:17→22:10)
[2020-05-03] MEDS: Lidoderm Patch 5% TOP SCH (11:18)
[2020-05-03] MEDS: Lopressor 25MG Tab PO SCH ×2 (11:22→22:15)
[2020-05-03] MEDS: NORVASC 5 MG PO SCH (11:26)
[2020-05-03] MEDS: THERAGRAN MULTIVITAMIN PO SCH (11:26)
[2020-05-03] MEDS: MAG-OX 400 PO SCH (11:27)
[2020-05-03] MEDS ORDERED: Pepcid 20 MG PO ONE (16:06)
[2020-05-03] MEDS ORDERED: SUBLIMAZE 100 MCG/2 ML IV PRN (16:12)
--- NOTE | 2020-05-03 16:16 | PCM.HP ---
History of Present Illness - Chief Complaint Chief Complaint: Acute exacerbation of chronic low back pain History of Present Illness: is a 70 year old female with history of chronic back pain, multiple surgeries done in the past in the cervical/thoracic spines with chronic low back pain presented in the ER with worsening low back pain for the last 3 days after she worked in the yard quite a bit. Reports initially it was a stiffness of lower back and gradually worsening to the point she could not get up this morning. She denies loss of bowel or bladder control. No numbness tingling of focal weakness of lower extremities but because of pain she is having difficulty movements. No fall or direct trauma to lower back. hx of scoliosis and osteoporosis - Review of Systems Constitutional: No Fever, No Chills Eyes: No Symptoms Ears, Nose, & Throat: No Symptoms Respiratory: No Cough, No Short Of Breath Cardiac: No Chest Pain, No Edema, No Syncope Abdominal/Gastrointestinal: No Abdominal Pain, No Nausea, No Vomiting, No Diarrhea Genitourinary Symptoms: No Dysuria Musculoskeletal: Back Pain, No Neck Pain Skin: No Rash Neurological: No Dizziness, No Focal Weakness, No Sensory Changes Psychological: No Symptoms Endocrine: No Symptoms Hematologic/Lymphatic: No Symptoms Immunological/Allergic: No Symptoms Medications & Allergies Home Medications: Home Medication List Atorvastatin Calcium [Lipitor 20MG Tablet] 20 mg PO HS 04/22/17 [History Confirmed 05/02/20] Famotidine 40 mg PO DAILY 04/22/17 [History Confirmed 05/02/20] Hydrocortisone [Cortef] 30 mg PO DAILY 04/22/17 [History Confirmed 05/02/20] Magnesium Oxide 500 mg PO DAILY 04/22/17 [History Confirmed 05/02/20] Metoprolol Tartrate 75 mg PO BID 04/22/17 [History Confirmed 05/02/20] Milk Thistle 200 mg PO DAILY 04/22/17 [History Confirmed 05/02/20] Multivitamin [Multivitamins] 1 each PO DAILY 04/22/17 [History Confirmed 05/02/20] Rizatriptan Benzoate [Maxalt] 10 mg PO UD 04/22/17 [History Confirmed 05/02/20] Tramadol HCl 50 mg [Ultram 50 mg] 50 mg PO Q6HPRN PRN 04/22/17 [History Confirmed 05/02/20] Zolpidem Tartrate [Ambien] 5 mg PO HS 04/22/17 [History Confirmed 05/02/20] Amlodipine Besylate 5 mg [Norvasc 5 mg] 5 mg PO DAILY 05/02/20 [History Confirmed 05/02/20] Calcium/FA/Multivits-Min [Viactiv Multi-Vitamin Soft Chw] 1 each PO BID 05/02/20 [History Confirmed 05/02/20] Hydrocortisone [Cortef] 10 mg PO HS 05/02/20 [History Confirmed 05/02/20] Lidocaine 0.5 each TP UD 05/02/20 [History Confirmed 05/02/20] Allergies/Adverse Reactions: Allergies Allergy/AdvReac Type Severity Reaction Status Date / Time esomeprazole [From Nexium] Allergy Verified 05/02/20 12:39 levofloxacin Allergy Verified 05/02/20 12:39 meloxicam [From Mobic] Allergy Verified 05/02/20 12:39 olsalazine [From Dipentum] Allergy Verified 05/02/20 12:39 zolmitriptan [From Zomig] Allergy Verified 05/02/20 12:39 azithromycin [From Zithromax] AdvReac Verified 05/02/20 12:39 - Past Medical History Past Medical History: Yes Neurological History: Migraines Cardiac History: High Cholesterol, Hypertension Respiratory History: Pneumonia Endocrine Medical History: No Pertinent History Musculoskelatal History: Degenerative Disk Disease, Osteoarthritis, Other GI Medical History: Ulcer Reproductive Disorders: No Pertinent History Comment: SURGICAL HX NOTED ABOVE. PATIENT REPORTS HX OF LUMBAR FRACTURE IN THE 80s AND BY DESCRIPTION WAS TRANSVERSE PROCESS - NO SURGERY, WAS BRACED. HX OF ADRENAL INSUFFICIENCY. CHRONIC BACK PAIN. Scoliosis - Female History Hx Last Menstrual Period: POST Are you now?: No - Past Surgical History Past Surgical History: Yes Musculskeletal Surgical Hx: Orthopedic Surgery Female Surgical History: Hysterectomy Other Surgical History: Partial gastrectomy. 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 - Social History Smoking Status: Never smoker Exposure to second hand smoke: No Alcohol: None Drug Use: none - Physical Exam Vital Signs: Vital Signs - 24 hr Temp Pulse Resp BP Pulse Ox 05/03/20 12:00 98.0 F 94 H 22 151/93 95 05/03/20 08:00 98.7 F 80 20 124/82 95 05/03/20 04:00 97.6 F 81 20 144/88 95 05/03/20 00:00 97.1 F 90 20 135/92 97 05/02/20 20:00 97.8 F 110 H 20 136/85 97 General Appearance: no apparent distress, alert Neurologic Exam: alert, oriented x 3, cooperative, normal mood/affect, nml cerebellar function, nml station & gait, sensation nml, No motor deficits Eye Exam: PERRL/EOMI, eyes nml inspection Ears, Nose, Throat Exam: normal ENT inspection, TMs normal, pharynx normal, moist mucous membranes Neck Exam: normal inspection, non-tender, supple, full range of motion Respiratory Exam: normal breath sounds, lungs clear, No respiratory distress Cardiovascular Exam: regular rate/rhythm, normal heart sounds, normal peripheral pulses Gastrointestinal/Abdomen Exam: soft, normal bowel sounds, No tenderness, No mass Back Exam: vertebral tenderness, decreased range of motion, muscle spasm, point tenderness, No CVA tenderness Extremity Exam: normal inspection, normal range of motion, pelvis stable Skin Exam: normal color, warm, dry, No rash Lymphatic Exam: No adenopathy Results - Labs Lab/Micro Results: Lab Results-Last 24 Hours 05/02/20 05/03/20 05/03/20 Range/Units 16:49 04:50 04:50 WBC 11.4 H (4.0-10.5) K/mm3 RBC 4.27 (4.1-5.4) M/mm3 Hgb 13.3 (12.0-16.0) gm/dl Hct 41.6 (35-47) % MCV 97.4 (78-100) fl MCH 31.1 (26-32) pg MCHC 32.0 (32-36) g/dl RDW 15.1 H (11.5-14.0) % Plt Count 299 (150-450) K/mm3 MPV 8.6 (7.5-11.0) fl Gran % 85.9 H (36.0-66.0) % Eos # (Auto) 0 (0-0.5) Absolute Lymphs (auto) 0.63 L (1.0-4.6) Absolute Monos (auto) 0.96 (0.0-1.3) Lymphocytes % 5.5 L (24.0-44.0) % Monocytes % 8.5 (0.0-12.0) % Eosinophils % 0.0 (0.00-5.0) % Basophils % 0.1 (0.0-0.4) % Absolute Granulocytes 9.76 H (1.4-6.9) Basophils # 0.01 (0-0.4) Sodium 132 L (137-145) mmol/L Potassium 5.6 H D (3.5-5.1) mmol/L Chloride 99 (98-107) mmol/L Carbon Dioxide 30 (22-30) mmol/L Anion Gap 9.4 (5-15) MEQ/L BUN 21 H (7-17) mg/dL Creatinine 0.51 L (0.52-1.04) mg/dL Estimated GFR > 60.0 ML/MIN Glucose 133 H (74-106) mg/dL POC Glucometer 160 H (74 to 106) mg/dL Calcium 9.7 (8.4-10.2) mg/dL Total Bilirubin 0.50 (0.2-1.3) mg/dL AST 28 (14-36) U/L ALT 22 (0-35) U/L Alkaline Phosphatase 56 (38-126) U/L Serum Total Protein 6.9 (6.3-8.2) g/dL Albumin 4.1 (3.5-5.0) g/dL Accuchecks Date 05/02/20 Time 16:30 - Radiology Impressions Radiology Exams & Impressions: Radiology Procedures Category Date Time Status CHEST 1 VIEW (PORTABLE) Urgent Exams 05/03/20 10:38 Completed LUMBAR SPINE W/O [CT] Stat Exams 05/02/20 08:[address]/LUMBAR SPINE W/O Indication: Low back pain radiating both legs. No known injury. Multiple contiguous axial images obtained through the lumbar spine. Sagittal and coronal reformatted images obtained. Comparison: CT abdomen/pelvis April 22, 2017. Osseous structures remain demineralized. Axial images negative for acute fracture or suspicious bony lesions. There remains mild/moderate multilevel degenerative disc disease of the visualized thoracolumbar spine with progressive worsening multilevel degenerative vacuum disc phenomena. Stable bilateral L4-S1 degenerative facet arthropathy. T12-L1 level demonstrates stable central extra thecal calcification effacing the thecal sac either chronic calcified disc protrusion/herniation versus calcified meningioma. Sagittal and coronal reformatted images demonstrate stable moderate levorotoscoliosis centered at L1, multilevel disc space loss, and minimal grade 1 L4 spondylolisthesis. No acute compression fracture. Visualized noncontrasted soft tissues again demonstrates minimal aortic calcifications. There has been interval gastric bypass surgery. Impression: 1. Progressive worsening multilevel degenerative spondylosis better evaluated with outpatient MRI. 2. Stable T12-L1 extra thecal calcification either chronic calcified disc protrusion/herniation versus calcified meningioma. MRI may yield further information if clinically warranted. 3. Stable levorotoscoliosis and grade 1 L4 spondylolisthesis. 4. Negative acute fracture. Assessment/Plan (1) Acute exacerbation of chronic low back pain Current Visit: Yes Status: Acute Assessment & Plan: Chief Complaint Diagnosis Acute exacerbation of chronic low back pain Allergies Allergy/AdvReac Type Severity Reaction Status Date / Time esomeprazole [From Nexium] Allergy Verified 05/02/20 12:39 levofloxacin Allergy Verified 05/02/20 12:39 meloxicam [From Mobic] Allergy Verified 05/02/20 12:39 olsalazine [From Dipentum] Allergy Verified 05/02/20 12:39 zolmitriptan [From Zomig] Allergy Verified 05/02/20 12:39 azithromycin [From Zithromax] AdvReac Verified 05/02/20 12:39 Vital Signs (Last 24 hours) Temp Pulse Resp BP Pulse Ox 05/03/20 12:00 98.0 F 94 H 22 151/93 95 05/03/20 08:00 98.7 F 80 20 124/82 95 05/03/20 04:00 97.6 F 81 20 144/88 95 05/03/20 00:00 97.1 F 90 20 135/92 97 05/02/20 20:00 97.8 F 110 H 20 136/85 97 Home Medications Medication Instructions Recorded Confirmed Last Taken Type Amlodipine Besylate 5 mg 5 mg PO DAILY 05/02/20 05/02/20 04/30/20 08:00 History [Norvasc 5 mg] Calcium/FA/Multivits-Min [Viactiv 1 each PO BID 05/02/20 05/02/20 04/30/20 22:00 History Multi-Vitamin Soft Chw] Hydrocortisone [Cortef] 10 mg PO HS 05/02/20 05/02/20 04/30/20 22:00 History Lidocaine 0.5 each TP UD 05/02/20 05/02/20 05/01/20 22:00 History Current Medications Generic Name Dose Route Start Last Admin Trade Name Freq PRN Reason Stop Dose Admin Acetaminophen 650 mg 05/02/20 11:36 Tylenol 325 Mg PO 06/01/20 11:35 Q4H PRN PRN PAIN AND/OR FEVER Amlodipine Besylate 5 mg 05/03/20 10:00 05/03/20 11:26 Norvasc 5 Mg PO 06/02/20 09:59 5 mg DAILY KEN Administration Calcium Carbonate 1 tab 05/03/20 10:00 05/03/20 11:17 Calcium 500mg W/Vit D Tablet PO 06/02/20 09:59 1 tab BID KEN Administration Famotidine 40 mg 05/03/20 16:00 Pepcid 20 Mg PO 06/02/20 15:58 BID KEN Famotidine 40 mg 05/03/20 16:06 Pepcid 20 Mg PO 05/03/20 16:07 ONCE ONE Fentanyl 50 mcg 05/02/20 18:00 05/02/20 19:48 Duragesic 50mcg Patch TD 05/07/20 17:59 50 mcg Q72H KEN Administration Hydrocortisone 10 mg 05/02/20 22:00 05/02/20 22:35 Hydrocortisone PO 06/01/20 21:59 10 mg HS KEN Administration Hydrocortisone 30 mg 05/03/20 10:00 05/03/20 11:15 Hydrocortisone PO 06/02/20 09:59 30 mg DAILY KEN Administration Lidocaine 1 patch 05/03/20 10:00 05/03/20 11:18 Lidoderm Patch 5% TOP 06/02/20 09:59 1 patch DAILY KEN Administration Magnesium Oxide 400 mg 05/03/20 10:00 05/03/20 11:27 Mag-Ox 400 PO 06/02/20 09:59 400 mg DAILY KEN Administration Metoprolol Tartrate 75 mg 05/02/20 22:00 05/03/20 11:22 Lopressor 25mg Tab PO 06/01/20 21:59 75 mg BID KEN Administration Miscellaneous Information 1 each 05/03/20 08:00 Medication Intervention 06/02/20 07:59 .RN TO CHECK WITH PT KEN Morphine Sulfate 4 mg 05/02/20 11:36 05/03/20 14:26 Morphine Sulfate 4 Mg Inj IV 05/07/20 11:35 4 mg Q4H PRN PRN Administration PAIN Multivitamins Therapeutic 1 tab 05/03/20 10:00 05/03/20 11:26 Theragran Multivitamin PO 06/02/20 09:59 1 tab DAILY KEN Administration Remove Duragesic 1 each 05/05/20 18:00 Patch 1 Each TOP 06/04/20 17:59 Q3D KEN Remove Lidoderm 1 each 05/03/20 22:00 Patch 1 Each TOP 06/02/20 21:59 HS KEN Ondansetron HCl 4 mg 05/02/20 11:36 Zofran 4 Mg/2 Ml Vial IV 06/01/20 11:35 Q6H PRN PRN NAUSEA/VOMITING Simvastatin 20 mg 05/02/20 22:00 05/02/20 22:36 Zocor 20mg PO 06/01/20 21:59 20 mg HS KEN Administration Zolpidem Tartrate 5 mg 05/02/20 22:00 05/02/20 22:35 Ambien 5 Mg Tablet PO 06/01/20 21:59 5 mg HS KEN Administration Discontinued Medications Generic Name Dose Route Start Last Admin Trade Name Freq PRN Reason Stop Dose Admin Albuterol/Ipratropium 3 ml 05/02/20 11:36 Duoneb 0.5-3 Mg/3 Ml Neb IH 06/01/20 11:35 Q4HPRN PRN SHORTNESS OF BREATH/WHEEZING Cyclobenzaprine HCl 10 mg 05/02/20 08:02 05/02/20 08:14 Cyclobenzaprine 10 Mg PO 05/02/20 08:03 10 mg STAT ONE Administration Cyclobenzaprine HCl Confirm 05/02/20 08:13 Cyclobenzaprine 10 Mg Administered 05/02/20 08:14 Dose 10 mg .ROUTE .STK-MED ONE Dexamethasone Sodium Phosphate 10 mg 05/02/20 10:32 05/02/20 11:03 Decadron 10mg Inj. IV 05/02/20 10:33 10 mg STAT ONE Administration Dexamethasone Sodium Phosphate Confirm 05/02/20 11:02 Decadron 10mg Inj. Administered 05/02/20 11:03 Dose 10 mg .ROUTE .STK-MED ONE Famotidine 20 mg 05/02/20 22:00 05/02/20 22:35 Pepcid 20 Mg Vial IV 06/01/20 21:59 20 mg Q12HT KEN Administration Famotidine 40 mg 05/03/20 10:00 05/03/20 11:23 Pepcid 20 Mg PO 06/02/20 09:59 40 mg DAILY KEN Administration Fentanyl 75 mcg 05/02/20 15:45 05/02/20 16:11 Duragesic 75 Mcg Patch TD 05/07/20 15:44 Not Given Q72H KEN Fentanyl 25 mcg 05/02/20 18:00 05/02/20 18:44 Duragesic 25mcg Patch TD 05/07/20 17:59 Not Given Q72H KEN Fentanyl Citrate 50 mcg 05/02/20 15:46 05/02/20 16:18 Sublimaze 100 Mcg/2 Ml IV 05/02/20 15:47 50 mcg 1XONLY ONE Administration Morphine Sulfate 4 mg 05/02/20 08:02 05/02/20 08:14 Morphine Sulfate 4 Mg Inj IM 05/02/20 08:03 4 mg STAT ONE Administration Morphine Sulfate Confirm 05/02/20 08:13 Morphine Sulfate 4 Mg Inj Administered 05/02/20 08:14 Dose 4 mg .ROUTE .STK-MED ONE Morphine Sulfate 4 mg 05/02/20 09:14 05/02/20 09:24 Morphine Sulfate 4 Mg Inj IV 05/02/20 09:15 4 mg STAT ONE Administration Morphine Sulfate Confirm 05/02/20 09:18 Morphine Sulfate 4 Mg Inj Administered 05/02/20 09:19 Dose 4 mg .ROUTE .STK-MED ONE Ondansetron HCl 4 mg 05/02/20 09:14 05/02/20 09:25 Zofran 4 Mg/2 Ml Vial IV 05/02/20 09:15 4 mg STAT ONE Administration Ondansetron HCl Confirm 05/02/20 09:18 Zofran 4 Mg/2 Ml Vial Administered 05/02/20 09:19 Dose 4 mg .ROUTE .STK-MED ONE Tramadol HCl 50 mg 05/02/20 20:35 Ultram 50 Mg PO 06/01/20 20:34 Q6H PRN PRN PAIN Intake & Output (Last 24 hours) 05/01/20 05/02/20 05/03/20 05/04/20 11:59 11:59 11:59 11:59 Intake Total 1320 Output Total 3250 Balance -1930 Weight 62.596 kg 61.3 kg Laboratory Results (Last 24 hours) 05/03/20 05/03/20 05/02/20 04:50 04:50 16:49 WBC 11.4 H RBC 4.27 Hgb 13.3 Hct 41.6 MCV 97.4 MCH 31.1 MCHC 32.0 RDW 15.1 H Plt Count 299 MPV 8.6 Gran % 85.9 H Eos # (Auto) 0 Absolute Lymphs (auto) 0.63 L Absolute Monos (auto) 0.96 Lymphocytes % 5.5 L Monocytes % 8.5 Eosinophils % 0.0 Basophils % 0.1 Absolute Granulocytes 9.76 H Basophils # 0.01 Sodium 132 L Potassium 5.6 H D Chloride 99 Carbon Dioxide 30 Anion Gap 9.4 BUN 21 H Creatinine 0.51 L Estimated GFR > 60.0 Glucose 133 H POC Glucometer 160 H Calcium 9.7 Total Bilirubin 0.50 AST 28 ALT 22 Alkaline Phosphatase 56 Serum Total Protein 6.9 Albumin 4.1 Orders (Last 24 hours) Category Date Time Status Infection Control Consult ROUTINE Cons 05/02/20 19:30 Completed Ensure Diet 05/02/20 Dinner Active CHEST 1 VIEW (PORTABLE) Urgent Exams 05/03/20 10:38 Completed BMP AM.LAB Lab 05/04/20 04:00 Ordered CBC W DIFF AM.LAB Lab 05/03/20 04:50 Completed CMP AM.LAB Lab 05/03/20 04:50 Completed POCT GLUCOSE Stat Lab 05/02/20 16:49 Completed Amlodipine Besylate 5 mg [Norvasc 5 mg] Med 05/03/20 10:00 Active 5 mg PO DAILY Calcium Carb/Vitamin D 500 mg* [Calcium 500MG W/Vit D Med 05/03/20 10:00 Active Tablet] 1 tab PO BID Famotidine 20 mg Vial [Pepcid 20 MG VIAL] Med 05/02/20 22:00 Discontinued 20 mg IV Q12HT Famotidine 20 mg [Pepcid 20 MG] Med 05/03/20 16:00 Ordered 40 mg PO BID Famotidine 20 mg [Pepcid 20 MG] Med 05/03/20 10:00 Discontinued 40 mg PO DAILY Famotidine 20 mg [Pepcid 20 MG] Med 05/03/20 16:06 Once 40 mg PO ONCE ONE Fentanyl 25Mcg Patch [Duragesic 25MCG Patch] Med 05/02/20 18:00 Discontinued 25 mcg TD Q72H Fentanyl 50Mcg Patch [Duragesic 50MCG Patch] Med 05/02/20 18:00 Active 50 mcg TD Q72H Fentanyl 75Mcg Patch [Duragesic 75 MCG Patch] Med 05/02/20 15:45 Discontinued 75 mcg TD Q72H Fentanyl Citrate 100 Mcg/2 ml* [Sublimaze 100 Mcg/2 ml* Med 05/02/20 15:46 Discontinued ] 50 mcg IV 1XONLY ONE Hydrocortisone Med 05/02/20 22:00 Active 10 mg PO HS Hydrocortisone Med 05/03/20 10:00 Active 30 mg PO DAILY Lidocaine HCl 5% Patch [Lidoderm Patch 5%] Med 05/03/20 10:00 Active 1 patch TOP DAILY Magnesium Oxide 400 mg [Mag-Ox 400] Med 05/03/20 10:00 Active 400 mg PO DAILY Medication Intervention Med 05/03/20 08:00 Active 1 each MC .RN TO CHECK WITH PT Metoprolol Tartrate 25 mg [Lopressor 25MG Tab] Med 05/02/20 22:00 Active 75 mg PO BID Multivitamins,Therapeutic Tab* [Theragran Multivitamin* Med 05/03/20 10:00 Active ] 1 tab PO DAILY Remove Patch [Remove Patch Reminder] Med 05/03/20 22:00 Active 1 each TOP HS Remove Patch [Remove Patch Reminder] Med 05/05/20 18:00 Active 1 each TOP Q3D Simvastatin 20Mg [Zocor 20Mg] Med 05/02/20 22:00 Active 20 mg PO HS Tramadol HCl 50 mg [Ultram 50 mg] Med 05/02/20 20:35 Discontinued 50 mg PO Q6H PRN PRN Zolpidem Tartrate 5 mg [Ambien 5 MG Tablet] Med 05/02/20 22:00 Active 5 mg PO HS OT Screen per Nursing Assess ONCE OT 05/03/20 08:00 Active PT Eval & Treat (MD Order) ONCE PT 05/03/20 08:49 Completed PT Screen per Nursing Assess ONCE PT 05/03/20 08:00 Active Patient Care Notes (Last 24 hours) 05/03/20 15:13 [facility] Management Note [facility] AND PATIENT'S FAMILY CAN TAKE HER UP Initialized on 05/03/20 15:13 - END OF NOTE 05/03/20 12:13 Case Management Note by Alexa Davenport REFERRAL SENT TO [facility] Initialized on 05/03/20 12:13 - END OF NOTE 05/03/20 10:59 Nursing Note by Emily Posadas I faxed a referral paper to 's office at [place] for him to fill out and fax back to me. I received it and faxed it to Pain Management for a referral to . They will set up the appt for patient. Initialized on 05/03/20 10:59 - END OF NOTE 05/03/20 10:47 Case Management Note by Alexa Davenport S/W KENY AT [facility]- THEY ARE NOT REQUIRING A COVID TEST LONG PATIENT IS NOT SYMPTOMATIC. SHE WAS NOTIFIED OF PATIENT'S TEMP X 2 OF 99.4- STATED THIS WAS NOT A PROBLEM. SHE ALSO REQUESTED A CURRENT CHEST XRAY. SHE STATED SHE WOULD ALSO TAKE CARE OF PASRR PAPERWORK ONCE PATIENT WAS ADMITTED Initialized on 05/03/20 10:47 - END OF NOTE 05/02/20 18:45 (created 05/02/20 19:46) Nursing Note by Judi Estrada Pt. refused the Fentanyl patches at this time. Fentanyl 50mcg and 25mcg return to the xis. Initialized on 05/02/20 19:46 - END OF NOTE 05/02/20 16:51 Nursing Note by Emily Posadas I faxed patients cat scan of lumbar sine w/o contrast to Dr.Eric Pitts at [phone]. He is patients Back surgeon. The patient gave us his number and fax. Initialized on 05/02/20 16:51 - END OF NOTE 05/02/20 16:20 (created 05/02/20 19:44) Nursing Note by Judi Estrada Pt. reported needing pain medication at 1600 before she could have PRN morphine. Called Dr. Alcala and orders received. Fentanyl 50mcg IV given at this time per MD order. Initialized on 05/02/20 19:44 - END OF NOTE Code(s): M54.5 - LOW BACK PAIN; G89.29 - OTHER CHRONIC PAIN (2) Spondylo-arthropathy Current Visit: Yes Status: Acute
[2020-05-03] MEDS: Cyclobenzaprine 10 MG PO SCH (22:09)
[2020-05-03] MEDS: Ambien 5 MG Tablet PO SCH (22:11)
[2020-05-03] MEDS: Pepcid 20 MG PO SCH (22:15)
[2020-05-03] MEDS: ZOCOR 20MG PO SCH (22:16)
[2020-05-03] MEDS: Hydromorphone 1 mg/ml Injection IV PRN (23:37)
[2020-05-04] MEDS: Hydromorphone 1 mg/ml Injection IV PRN ×2 (03:48→07:58)
[2020-05-04 05:41] LABS: ANION GAP 7.9 MEQ/L (5-15); BLOOD UREA NITROGEN 25 mg/dL (7-17); CHLORIDE 99 mmol/L (98-107); Calcium 9.4 mg/dL (8.4-10.2); Carbon Dioxide 30 mmol/L (22-30); Creatinine 1 0.53 mg/dL (0.52-1.04); EST GLOMERULAR FILTRATION RATE > 60.0 ML/MIN; Glucose 115 mg/dL (74-106); Potassium 4.6 mmol/L (3.5-5.1); SODIUM 132 mmol/L (137-145)
[2020-05-04] MEDS: Cyclobenzaprine 10 MG PO SCH ×2 (09:33→14:41)
[2020-05-04] MEDS: Duragesic 50MCG Patch TD SCH (10:45)
[2020-05-04] MEDS: Lidoderm Patch 5% TOP SCH (10:45)
[2020-05-04] MEDS: Lopressor 25MG Tab PO SCH (10:46)
[2020-05-04] MEDS: Pepcid 20 MG PO SCH (10:46)
[2020-05-04] MEDS: MAG-OX 400 PO SCH (10:46)
[2020-05-04] MEDS: HYDROCORTISONE PO SCH (10:47)
[2020-05-04] MEDS: Calcium 500MG W/Vit D Tablet PO SCH (10:47)
[2020-05-04] MEDS: THERAGRAN MULTIVITAMIN PO SCH (10:47)
[2020-05-04] MEDS: NORVASC 5 MG PO SCH (10:49)
--- NOTE | 2020-05-04 11:23 | PCM.NOTE ---
Date and Time: 05/04/201121 Subjective Assessment: c/o pain in back. MRI today - Review of Systems Constitutional: No Fever, No Chills Eyes: No Symptoms Ears, Nose, & Throat: No Symptoms Respiratory: No Cough, No Short Of Breath Cardiac: No Chest Pain, No Edema, No Syncope Abdominal/Gastrointestinal: No Abdominal Pain, No Nausea, No Vomiting, No Diarrhea Genitourinary Symptoms: No Dysuria Musculoskeletal: No Back Pain, No Neck Pain Skin: No Rash Neurological: No Dizziness, No Focal Weakness, No Sensory Changes Psychological: No Symptoms Endocrine: No Symptoms Hematologic/Lymphatic: No Symptoms Immunological/Allergic: No Symptoms Objective Exam General Appearance: no apparent distress, alert Neurologic Exam: alert, oriented x 3, cooperative, normal mood/affect, nml cerebellar function, sensation nml, No motor deficits Skin Exam: normal color, warm, dry Eye Exam: PERRL, EOMI, eyes nml inspection Ears, Nose, Throat Exam: normal ENT inspection, pharynx normal, moist mucous membranes Neck Exam: normal inspection, non-tender, supple, full range of motion Respiratory Exam: normal breath sounds, lungs clear, No respiratory distress Cardiovascular Exam: regular rate/rhythm, normal heart sounds Gastrointestinal/Abdomen Exam: soft, No tenderness, No mass Extremity Exam: normal inspection, normal range of motion Back Exam: normal inspection, normal range of motion, No CVA tenderness, No vertebral tenderness Pelvic Exam: deferred Rectal Exam: deferred OBJECTIVE DATA Vital Signs: Vital Signs - 24 hr Temp Pulse Resp BP Pulse Ox 05/04/20 07:22 98.6 F 97 H 20 139/80 96 05/04/20 04:00 98.9 F 92 H 18 142/95 96 05/04/20 00:00 99.3 F 96 H 18 146/91 96 05/03/20 20:00 97.3 F 98 H 16 140/90 95 05/03/20 16:00 98.4 F 94 H 20 145/95 96 05/03/20 12:00 98.0 F 94 H 22 151/93 95 Pain Assessment - Last Documented Pain Intensity [Back] 10 Pain Intensity 9 Pain Scale Used 0-10 Pain Scale Intake and Output: Intake & Output 05/01/20 05/02/20 05/03/20 05/04/20 11:59 11:59 11:59 11:59 Intake Total 1320 1360 Output Total 3250 950 Balance -1930 410 Weight 62.596 kg 61.3 kg 61.4 kg Lab Results: Lab Results-Last 24 Hours 05/04/20 Range/Units 04:55 Sodium 132 L (137-145) mmol/L Potassium 4.6 (3.5-5.1) mmol/L Chloride 99 (98-107) mmol/L Carbon Dioxide 30 (22-30) mmol/L Anion Gap 7.9 (5-15) MEQ/L BUN 25 H (7-17) mg/dL Creatinine 0.53 (0.52-1.04) mg/dL Estimated GFR > 60.0 ML/MIN Glucose 115 H (74-106) mg/dL Calcium 9.4 (8.4-10.2) mg/dL Radiology Exams: Radiology Procedures Category Date Time Status CHEST 1 VIEW (PORTABLE) Urgent Exams 05/03/20 10:38 Completed MRI L-SPINE WITHOUT CONTRAST [MRI] Routine Exams 05/04/20 09:07 Taken Multi-Disciplinary Progress Notes: Multi-Disciplinary Progress Notes 05/03/20 15:13 Case Management Note by Alexa Davenport HAS ACCEPTED PATIENT AND PATIENT'S FAMILY CAN TAKE HER UP Initialized on 05/03/20 15:13 - END OF NOTE 05/03/20 12:13 Case Management Note by Alexa Davenport REFERRAL SENT TO [facility] Initialized on 05/03/20 12:13 - END OF NOTE Assessment/Plan (1) Acute exacerbation of chronic low back pain Current Visit: Yes Status: Acute Assessment & Plan: Chief Complaint Diagnosis Acute exacerbation of chronic low back pain Allergies Allergy/AdvReac Type Severity Reaction Status Date / Time esomeprazole [From Nexium] Allergy Verified 05/02/20 12:39 levofloxacin Allergy Verified 05/02/20 12:39 meloxicam [From Mobic] Allergy Verified 05/02/20 12:39 olsalazine [From Dipentum] Allergy Verified 05/02/20 12:39 zolmitriptan [From Zomig] Allergy Verified 05/02/20 12:39 azithromycin [From Zithromax] AdvReac Verified 05/02/20 12:39 Vital Signs (Last 24 hours) Temp Pulse Resp BP Pulse Ox 05/04/20 07:22 98.6 F 97 H 20 139/80 96 05/04/20 04:00 98.9 F 92 H 18 142/95 96 05/04/20 00:00 99.3 F 96 H 18 146/91 96 05/03/20 20:00 97.3 F 98 H 16 140/90 95 05/03/20 16:00 98.4 F 94 H 20 145/95 96 05/03/20 12:00 98.0 F 94 H 22 151/93 95 Home Medications Medication Instructions Recorded Confirmed Last Taken Type Amlodipine Besylate 5 mg 5 mg PO DAILY 05/02/20 05/02/20 04/30/20 08:00 History [Norvasc 5 mg] Calcium/FA/Multivits-Min [Viactiv 1 each PO BID 05/02/20 05/02/20 04/30/20 22:00 History Multi-Vitamin Soft Chw] Hydrocortisone [Cortef] 10 mg PO HS 05/02/20 05/02/20 04/30/20 22:00 History Lidocaine 0.5 each TP UD 05/02/20 05/02/20 05/01/20 22:00 History Current Medications Generic Name Dose Route Start Last Admin Trade Name Freq PRN Reason Stop Dose Admin Acetaminophen 650 mg 05/02/20 11:36 Tylenol 325 Mg PO 06/01/20 11:35 Q4H PRN PRN PAIN AND/OR FEVER Amlodipine Besylate 5 mg 05/03/20 10:00 05/04/20 10:49 Norvasc 5 Mg PO 06/02/20 09:59 5 mg DAILY KEN Administration Calcium Carbonate 1 tab 05/03/20 10:00 05/04/20 10:47 Calcium 500mg W/Vit D Tablet PO 06/02/20 09:59 1 tab BID KEN Administration Cyclobenzaprine HCl 5 mg 05/03/20 22:00 05/04/20 09:33 Cyclobenzaprine 10 Mg PO 06/02/20 21:59 5 mg TID KEN Administration Famotidine 40 mg 05/03/20 16:00 05/04/20 10:46 Pepcid 20 Mg PO 06/02/20 15:58 40 mg BID KEN Administration Fentanyl 50 mcg 05/02/20 18:00 05/04/20 10:45 Duragesic 50mcg Patch TD 05/07/20 17:59 50 mcg Q72H KEN Administration Hydrocortisone 10 mg 05/02/20 22:00 05/03/20 22:14 Hydrocortisone PO 06/01/20 21:59 10 mg HS KEN Administration Hydrocortisone 30 mg 05/03/20 10:00 05/04/20 10:47 Hydrocortisone PO 06/02/20 09:59 30 mg DAILY KEN Administration Hydromorphone HCl 0.5 mg 05/03/20 22:00 05/04/20 07:58 Hydromorphone 1 Mg/Ml Injection IV 05/08/20 21:59 0.5 mg Q4H PRN PRN Administration PAIN Lidocaine 1 patch 05/03/20 10:00 05/04/20 10:45 Lidoderm Patch 5% TOP 06/02/20 09:59 1 patch DAILY KEN Administration Magnesium Oxide 400 mg 05/03/20 10:00 05/04/20 10:46 Mag-Ox 400 PO 06/02/20 09:59 400 mg DAILY KEN Administration Metoprolol Tartrate 75 mg 05/02/20 22:00 05/04/20 10:46 Lopressor 25mg Tab PO 06/01/20 21:59 75 mg BID KEN Administration Miscellaneous Information 1 each 05/03/20 08:00 Medication Intervention MC 06/02/20 07:59 .RN TO CHECK WITH PT KEN Multivitamins Therapeutic 1 tab 05/03/20 10:00 05/04/20 10:47 Theragran Multivitamin PO 06/02/20 09:59 1 tab DAILY KEN Administration Remove Duragesic 1 each 05/05/20 18:00 Patch 1 Each TOP 06/04/20 17:59 Q3D KEN Remove Lidoderm 1 each 05/03/20 22:00 05/03/20 22:16 Patch 1 Each TOP 06/02/20 21:59 1 each HS KEN Administration Ondansetron HCl 4 mg 05/02/20 11:36 Zofran 4 Mg/2 Ml Vial IV 06/01/20 11:35 Q6H PRN PRN NAUSEA/VOMITING Simvastatin 20 mg 05/02/20 22:00 05/03/20 22:16 Zocor 20mg PO 06/01/20 21:59 20 mg HS KEN Administration Zolpidem Tartrate 5 mg 05/02/20 22:00 05/03/20 22:11 Ambien 5 Mg Tablet PO 06/01/20 21:59 5 mg HS KEN Administration Discontinued Medications Generic Name Dose Route Start Last Admin Trade Name Freq PRN Reason Stop Dose Admin Albuterol/Ipratropium 3 ml 05/02/20 11:36 Duoneb 0.5-3 Mg/3 Ml Neb IH 06/01/20 11:35 Q4HPRN PRN SHORTNESS OF BREATH/WHEEZING Cyclobenzaprine HCl 10 mg 05/02/20 08:02 05/02/20 08:14 Cyclobenzaprine 10 Mg PO 05/02/20 08:03 10 mg STAT ONE Administration Cyclobenzaprine HCl Confirm 05/02/20 08:13 Cyclobenzaprine 10 Mg Administered 05/02/20 08:14 Dose 10 mg .ROUTE .STK-MED ONE Dexamethasone Sodium Phosphate 10 mg 05/02/20 10:32 05/02/20 11:03 Decadron 10mg Inj. IV 05/02/20 10:33 10 mg STAT ONE Administration Dexamethasone Sodium Phosphate Confirm 05/02/20 11:02 Decadron 10mg Inj. Administered 05/02/20 11:03 Dose 10 mg .ROUTE .STK-MED ONE Famotidine 20 mg 05/02/20 22:00 05/02/20 22:35 Pepcid 20 Mg Vial IV 06/01/20 21:59 20 mg Q12HT KEN Administration Famotidine 40 mg 05/03/20 10:00 05/03/20 11:23 Pepcid 20 Mg PO 06/02/20 09:59 40 mg DAILY KEN Administration Famotidine 40 mg 05/03/20 16:06 05/03/20 17:23 Pepcid 20 Mg PO 05/03/20 16:07 40 mg ONCE ONE Administration Fentanyl 75 mcg 05/02/20 15:45 05/02/20 16:11 Duragesic 75 Mcg Patch TD 05/07/20 15:44 Not Given Q72H KEN Fentanyl 25 mcg 05/02/20 18:00 05/02/20 18:44 Duragesic 25mcg Patch TD 05/07/20 17:59 Not Given Q72H KEN Fentanyl Citrate 50 mcg 05/02/20 15:46 05/02/20 16:18 Sublimaze 100 Mcg/2 Ml IV 05/02/20 15:47 50 mcg 1XONLY ONE Administration Fentanyl Citrate 50 mcg 05/03/20 16:12 05/03/20 17:22 Sublimaze 100 Mcg/2 Ml IV 05/08/20 16:11 50 mcg Q6HPRN PRN Administration PAIN Morphine Sulfate 4 mg 05/02/20 08:02 05/02/20 08:14 Morphine Sulfate 4 Mg Inj IM 05/02/20 08:03 4 mg STAT ONE Administration Morphine Sulfate Confirm 05/02/20 08:13 Morphine Sulfate 4 Mg Inj Administered 05/02/20 08:14 Dose 4 mg .ROUTE .STK-MED ONE Morphine Sulfate 4 mg 05/02/20 09:14 05/02/20 09:24 Morphine Sulfate 4 Mg Inj IV 05/02/20 09:15 4 mg STAT ONE Administration Morphine Sulfate Confirm 05/02/20 09:18 Morphine Sulfate 4 Mg Inj Administered 05/02/20 09:19 Dose 4 mg .ROUTE .STK-MED ONE Morphine Sulfate 4 mg 05/02/20 11:36 05/03/20 14:26 Morphine Sulfate 4 Mg Inj IV 05/07/20 11:35 4 mg Q4H PRN PRN Administration PAIN Ondansetron HCl 4 mg 05/02/20 09:14 05/02/20 09:25 Zofran 4 Mg/2 Ml Vial IV 05/02/20 09:15 4 mg STAT ONE Administration Ondansetron HCl Confirm 05/02/20 09:18 Zofran 4 Mg/2 Ml Vial Administered 05/02/20 09:19 Dose 4 mg .ROUTE .STK-MED ONE Tramadol HCl 50 mg 05/02/20 20:35 Ultram 50 Mg PO 06/01/20 20:34 Q6H PRN PRN PAIN Intake & Output (Last 24 hours) 05/01/20 05/02/20 05/03/20 05/04/20 11:59 11:59 11:59 11:59 Intake Total 1320 1360 Output Total 3250 950 Balance -1930 410 Weight 62.596 kg 61.3 kg 61.4 kg Laboratory Results (Last 24 hours) 05/04/20 04:55 Sodium 132 L Potassium 4.6 Chloride 99 Carbon Dioxide 30 Anion Gap 7.9 BUN 25 H Creatinine 0.53 Estimated GFR > 60.0 Glucose 115 H Calcium 9.4 Orders (Last 24 hours) Category Date Time Status CHEST 1 VIEW (PORTABLE) Urgent Exams 05/03/20 10:38 Completed MRI L-SPINE WITHOUT CONTRAST [MRI] Routine Exams 05/04/20 09:07 Taken BMP AM.LAB Lab 05/04/20 04:55 Completed Cyclobenzaprine HCl 10 mg [Cyclobenzaprine 10 MG] Med 05/03/20 22:00 Active 5 mg PO TID Famotidine 20 mg [Pepcid 20 MG] Med 05/03/20 16:00 Active 40 mg PO BID Famotidine 20 mg [Pepcid 20 MG] Med 05/03/20 16:06 Discontinued 40 mg PO ONCE ONE Fentanyl Citrate 100 Mcg/2 ml* [Sublimaze 100 Mcg/2 ml* Med 05/03/20 16:12 Discontinued ] 50 mcg IV Q6HPRN PRN Hydromorphone 1 mg/1Ml Inj [Hydromorphone 1 mg/ml Med 05/03/20 22:00 Active Injection] 0.5 mg IV Q4H PRN PRN Remove Patch [Remove Patch Reminder] Med 05/03/20 22:00 Active 1 each TOP HS Remove Patch [Remove Patch Reminder] Med 05/05/20 18:00 Active 1 each TOP Q3D Patient Care Notes (Last 24 hours) 05/03/20 21:56 SBAR Note by Peterson Infante SITUATION I am calling about EZIO NOE the patient's code status is Full Code The problem I am calling about is: Patient states that IV Fentanyl is not helping. Patient also states that the Fentanyl makes her feel "weird". Patient also asks junior copywriter about getting a muscle relaxer. ASSESSMENT RECOMMENDATION Physician notified at [id number] New Orders received: Dr Russell gave junior copywriter order for Dilaudid 0.5mg IV Q4H and Flexeril 5mg TID one dose right now. also received orders to discontinue IV Fentanyl but leave on Fentanyl patch. Vital Signs (Last 4 hours) Temp Pulse Resp BP Pulse Ox 05/03/20 20:00 97.3 F 98 H 16 140/90 95 Diagnois, Code Status Date of Arrival on Unit 05/02/20 Admitted From Emergency Dept Diagnosis Acute exacerbation of chronic low back pain Resucitation Status Full Code Intake and Output 24 Hours 05/03/20 05/04/20 06:59 06:59 Intake Total 720 1480 Output Total 2650 1250 Balance -1930 230 Weight 61.3 kg Intake: Intake, Oral Amount 720 1480 Output: Output, Urine Amount 450 Output, Nava: 2200 1250 Other: Number of Voids 1 Physical Assessment Anxiety Level None,at ease,Awake,Calm Mental Status Alert Patient Orientation Person,Place,Time Coma Scale Total 15 Breath Sounds [Anterior/ Clear Posterior Bilateral Throughout ] Bowel Sounds [All Quadrants] Present Abdomen Description Soft Date Nava Cath Inserted 05/02/20 Urine Appearance Clear Urine Color Yellow Skin Color Normal for Race Skin Temperature Warm Pain Scale (Last 24 Hours) Pain Intensity 7 Pain Intensity 9 Pain Intensity 10 Pain Intensity 10 Pain Intensity 10 Pain Intensity 10 Pain Intensity 7 Pain Intensity 10 Pain Intensity 9 Pain Intensity 6 Pain Intensity 10 Pain Intensity 7 Pain Intensity 7 Pain Intensity 6 Pain Intensity 10 PAST MEDICAL HISTORY Neurological History Migraines Endocrine Medical History No Pertinent History Respiratory History Pneumonia Cardiac History High Cholesterol,Hypertension GI Medical History Ulcer Reproductive Disorders No Pertinent History Comment SURGICAL HX NOTED ABOVE. PATIENT REPORTS HX OF LUMBAR FRACTURE IN THE 80s AND BY DESCRIPTION WAS TRANSVERSE PROCESS - NO SURGERY, WAS BRACED. HX OF ADRENAL INSUFFICIENCY CHRONIC BACK PAIN Scoliosis Lab Results (Last 24 Hours) 05/03/20 05/03/20 Range/Units 04:50 04:50 WBC 11.4 H (4.0-10.5) K/mm3 RBC 4.27 (4.1-5.4) M/mm3 Hgb 13.3 (12.0-16.0) gm/dl Hct 41.6 (35-47) % MCV 97.4 (78-100) fl MCH 31.1 (26-32) pg MCHC 32.0 (32-36) g/dl RDW 15.1 H (11.5-14.0) % Plt Count 299 (150-450) K/mm3 MPV 8.6 (7.5-11.0) fl Gran % 85.9 H (36.0-66.0) % Eos # (Auto) 0 (0-0.5) Absolute Lymphs (auto) 0.63 L (1.0-4.6) Absolute Monos (auto) 0.96 (0.0-1.3) Lymphocytes % 5.5 L (24.0-44.0) % Monocytes % 8.5 (0.0-12.0) % Eosinophils % 0.0 (0.00-5.0) % Basophils % 0.1 (0.0-0.4) % Absolute Granulocytes 9.76 H (1.4-6.9) Basophils # 0.01 (0-0.4) Sodium 132 L (137-145) mmol/L Potassium 5.6 H D (3.5-5.1) mmol/L Chloride 99 (98-107) mmol/L Carbon Dioxide 30 (22-30) mmol/L Anion Gap 9.4 (5-15) MEQ/L BUN 21 H (7-17) mg/dL Creatinine 0.51 L (0.52-1.04) mg/dL Estimated GFR > 60.0 ML/MIN Glucose 133 H (74-106) mg/dL Calcium 9.7 (8.4-10.2) mg/dL Total Bilirubin 0.50 (0.2-1.3) mg/dL AST 28 (14-36) U/L ALT 22 (0-35) U/L Alkaline Phosphatase 56 (38-126) U/L Serum Total Protein 6.9 (6.3-8.2) g/dL Albumin 4.1 (3.5-5.0) g/dL Orders (Last 24 Hours) Category Date Time Status BMP AM.LAB Lab 05/04/20 04:00 Ordered Amlodipine Besylate 5 mg [Norvasc 5 mg] Med 05/03/20 10:00 Active 5 mg PO DAILY Calcium Carb/Vitamin D 500 mg* [Calcium 500MG W/Vit D Med 05/03/20 10:00 Active Tablet] 1 tab PO BID Famotidine 20 mg [Pepcid 20 MG] Med 05/03/20 16:00 Active 40 mg PO BID Fentanyl Citrate 100 Mcg/2 ml* [Sublimaze 100 Mcg/2 ml* Med 05/03/20 16:12 Active ] 50 mcg IV Q6HPRN PRN Hydrocortisone Med 05/02/20 22:00 Active 10 mg PO HS Hydrocortisone Med 05/03/20 10:00 Active 30 mg PO DAILY Lidocaine HCl 5% Patch [Lidoderm Patch 5%] Med 05/03/20 10:00 Active 1 patch TOP DAILY Magnesium Oxide 400 mg [Mag-Ox 400] Med 05/03/20 10:00 Active 400 mg PO DAILY Medication Intervention Med 05/03/20 08:00 Active 1 each MC .RN TO CHECK WITH PT Metoprolol Tartrate 25 mg [Lopressor 25MG Tab] Med 05/02/20 22:00 Active 75 mg PO BID Multivitamins,Therapeutic Tab* [Theragran Multivitamin* Med 05/03/20 10:00 Active ] 1 tab PO DAILY Remove Patch [Remove Patch Reminder] Med 05/03/20 22:00 Active 1 each TOP HS Remove Patch [Remove Patch Reminder] Med 05/05/20 18:00 Active 1 each TOP Q3D Simvastatin 20Mg [Zocor 20Mg] Med 05/02/20 22:00 Active 20 mg PO HS Zolpidem Tartrate 5 mg [Ambien 5 MG Tablet] Med 05/02/20 22:00 Active 5 mg PO HS OT Screen per Nursing Assess ONCE OT 05/03/20 08:00 Active PT Screen per Nursing Assess ONCE PT 05/03/20 08:00 Active Nursing Notes (Last 12 hours) 05/03/20 19:36 SBAR Note by Mercedes Dominguez SITUATION I am calling about EZIO NOE the patient's code status is Full Code The problem I am calling about is: notified Dr. Russell of elevated potassium. he asked that i order bmp for am and hold potassium if patient was on any ASSESSMENT RECOMMENDATION Physician notified at 1936 New Orders received: Vital Signs (Last 4 hours) Temp Pulse Resp BP Pulse Ox 05/03/20 16:00 98.4 F 94 H 20 145/95 96 Diagnois, Code Status Date of Arrival on Unit 05/02/20 Admitted From Emergency Dept Diagnosis Acute exacerbation of chronic low back pain Resucitation Status Full Code Intake and Output 24 Hours 05/03/20 05/04/20 06:59 06:59 Intake Total 720 1480 Output Total 2650 1250 Balance -1930 230 Weight 61.3 kg Intake: Intake, Oral Amount 720 1480 Output: Output, Urine Amount 450 Output, Nava: 2200 1250 Other: Number of Voids 1 Physical Assessment Anxiety Level None,at ease,Awake,Calm Mental Status Alert Patient Orientation Person,Place,Time Coma Scale Total 15 Breath Sounds [Anterior/ Clear Posterior Bilateral Throughout ] Bowel Sounds [All Quadrants] Present Abdomen Description Soft Date Nava Cath Inserted 05/02/20 Urine Appearance Clear Urine Color Yellow Skin Color Normal for Race Skin Temperature Warm Pain Scale (Last 24 Hours) Pain Intensity 7 Pain Intensity 9 Pain Intensity 10 Pain Intensity 10 Pain Intensity 10 Pain Intensity 10 Pain Intensity 7 Pain Intensity 10 Pain Intensity 9 Pain Intensity 6 Pain Intensity 10 Pain Intensity 7 Pain Intensity 7 Pain Intensity 6 Pain Intensity 10 Pain Intensity 8 Pain Intensity 10 Pain Intensity 10 PAST MEDICAL HISTORY Neurological History Migraines Endocrine Medical History No Pertinent History Respiratory History Pneumonia Cardiac History High Cholesterol,Hypertension GI Medical History Ulcer Reproductive Disorders No Pertinent History Comment SURGICAL HX NOTED ABOVE. PATIENT REPORTS HX OF LUMBAR FRACTURE IN THE 80s AND BY DESCRIPTION WAS TRANSVERSE PROCESS - NO SURGERY, WAS BRACED. HX OF ADRENAL INSUFFICIENCY CHRONIC BACK PAIN Scoliosis Lab Results (Last 24 Hours) 05/03/20 05/03/20 Range/Units 04:50 04:50 WBC 11.4 H (4.0-10.5) K/mm3 RBC 4.27 (4.1-5.4) M/mm3 Hgb 13.3 (12.0-16.0) gm/dl Hct 41.6 (35-47) % MCV 97.4 (78-100) fl MCH 31.1 (26-32) pg MCHC 32.0 (32-36) g/dl RDW 15.1 H (11.5-14.0) % Plt Count 299 (150-450) K/mm3 MPV 8.6 (7.5-11.0) fl Gran % 85.9 H (36.0-66.0) % Eos # (Auto) 0 (0-0.5) Absolute Lymphs (auto) 0.63 L (1.0-4.6) Absolute Monos (auto) 0.96 (0.0-1.3) Lymphocytes % 5.5 L (24.0-44.0) % Monocytes % 8.5 (0.0-12.0) % Eosinophils % 0.0 (0.00-5.0) % Basophils % 0.1 (0.0-0.4) % Absolute Granulocytes 9.76 H (1.4-6.9) Basophils # 0.01 (0-0.4) Sodium 132 L (137-145) mmol/L Potassium 5.6 H D (3.5-5.1) mmol/L Chloride 99 (98-107) mmol/L Carbon Dioxide 30 (22-30) mmol/L Anion Gap 9.4 (5-15) MEQ/L BUN 21 H (7-17) mg/dL Creatinine 0.51 L (0.52-1.04) mg/dL Estimated GFR > 60.0 ML/MIN Glucose 133 H (74-106) mg/dL Calcium 9.7 (8.4-10.2) mg/dL Total Bilirubin 0.50 (0.2-1.3) mg/dL AST 28 (14-36) U/L ALT 22 (0-35) U/L Alkaline Phosphatase 56 (38-126) U/L Serum Total Protein 6.9 (6.3-8.2) g/dL Albumin 4.1 (3.5-5.0) g/dL Orders (Last 24 Hours) Category Date Time Status BMP AM.LAB Lab 05/04/20 04:00 Ordered Amlodipine Besylate 5 mg [Norvasc 5 mg] Med 05/03/20 10:00 Active 5 mg PO DAILY Calcium Carb/Vitamin D 500 mg* [Calcium 500MG W/Vit D Med 05/03/20 10:00 Active Tablet] 1 tab PO BID Famotidine 20 mg [Pepcid 20 MG] Med 05/03/20 16:00 Active 40 mg PO BID Fentanyl Citrate 100 Mcg/2 ml* [Sublimaze 100 Mcg/2 ml* Med 05/03/20 16:12 Active ] 50 mcg IV Q6HPRN PRN Hydrocortisone Med 05/02/20 22:00 Active 10 mg PO HS Hydrocortisone Med 05/03/20 10:00 Active 30 mg PO DAILY Lidocaine HCl 5% Patch [Lidoderm Patch 5%] Med 05/03/20 10:00 Active 1 patch TOP DAILY Magnesium Oxide 400 mg [Mag-Ox 400] Med 05/03/20 10:00 Active 400 mg PO DAILY Medication Intervention Med 05/03/20 08:00 Active 1 each MC .RN TO CHECK WITH PT Metoprolol Tartrate 25 mg [Lopressor 25MG Tab] Med 05/02/20 22:00 Active 75 mg PO BID Multivitamins,Therapeutic Tab* [Theragran Multivitamin* Med 05/03/20 10:00 Active ] 1 tab PO DAILY Remove Patch [Remove Patch Reminder] Med 05/03/20 22:00 Active 1 each TOP HS Remove Patch [Remove Patch Reminder] Med 05/05/20 18:00 Active 1 each TOP Q3D Simvastatin 20Mg [Zocor 20Mg] Med 05/02/20 22:00 Active 20 mg PO HS Zolpidem Tartrate 5 mg [Ambien 5 MG Tablet] Med 05/02/20 22:00 Active 5 mg PO HS OT Screen per Nursing Assess ONCE OT 05/03/20 08:00 Active PT Screen per Nursing Assess ONCE PT 05/03/20 08:00 Active Nursing Notes (Last 12 hours) 05/03/20 10:59 Nursing Note by Emily Posadas I faxed a referral paper to 's office at [place] for him to fill out and fax back to me. I received it and faxed it to Pain Management for a referral to . They will set up the appt for patient. Initialized on 05/03/20 10:59 - END OF NOTE Active Visit Medications Generic Name Dose Route Start Last Admin Trade Name Freq PRN Reason Stop Dose Admin Acetaminophen 650 mg 05/02/20 11:36 Tylenol 325 Mg PO 06/01/20 11:35 Q4H PRN PRN PAIN AND/OR FEVER Amlodipine Besylate 5 mg 05/03/20 10:00 05/03/20 11:26 Norvasc 5 Mg PO 06/02/20 09:59 5 mg DAILY KEN Administration Calcium Carbonate 1 tab 05/03/20 10:00 05/03/20 11:17 Calcium 500mg W/Vit D Tablet PO 06/02/20 09:59 1 tab BID KEN Administration Famotidine 40 mg 05/03/20 16:00 Pepcid 20 Mg PO 06/02/20 15:58 BID KEN Fentanyl 50 mcg 05/02/20 18:00 05/02/20 19:48 Duragesic 50mcg Patch TD 05/07/20 17:59 50 mcg Q72H KEN Administration Fentanyl Citrate 50 mcg 05/03/20 16:12 05/03/20 17:22 Sublimaze 100 Mcg/2 Ml IV 05/08/20 16:11 50 mcg Q6HPRN PRN Administration PAIN Hydrocortisone 10 mg 05/02/20 22:00 05/02/20 22:35 Hydrocortisone PO 06/01/20 21:59 10 mg HS KEN Administration Hydrocortisone 30 mg 05/03/20 10:00 05/03/20 11:15 Hydrocortisone PO 06/02/20 09:59 30 mg DAILY KEN Administration Lidocaine 1 patch 05/03/20 10:00 05/03/20 11:18 Lidoderm Patch 5% TOP 06/02/20 09:59 1 patch DAILY KEN Administration Magnesium Oxide 400 mg 05/03/20 10:00 05/03/20 11:27 Mag-Ox 400 PO 06/02/20 09:59 400 mg DAILY KEN Administration Metoprolol Tartrate 75 mg 05/02/20 22:00 05/03/20 11:22 Lopressor 25mg Tab PO 06/01/20 21:59 75 mg BID KEN Administration Miscellaneous Information 1 each 05/03/20 08:00 Medication Intervention 06/02/20 07:59 .RN TO CHECK WITH PT [facility] Multivitamins Therapeutic 1 tab 05/03/20 10:00 05/03/20 11:26 Theragran Multivitamin PO 06/02/20 09:59 1 tab DAILY KEN Administration Remove Duragesic 1 each 05/05/20 18:00 Patch 1 Each TOP 06/04/20 17:59 Q3D KEN Remove Lidoderm 1 each 05/03/20 22:00 Patch 1 Each TOP 06/02/20 21:59 HS KEN Ondansetron HCl 4 mg 05/02/20 11:36 Zofran 4 Mg/2 Ml Vial IV 06/01/20 11:35 Q6H PRN PRN NAUSEA/VOMITING Simvastatin 20 mg 05/02/20 22:00 05/02/20 22:36 Zocor 20mg PO 06/01/20 21:59 20 mg HS KEN Administration Zolpidem Tartrate 5 mg 05/02/20 22:00 05/02/20 22:35 Ambien 5 Mg Tablet PO 06/01/20 21:59 5 mg HS KEN Administration Home Medications Medication Instructions Recorded Confirmed Last Taken Type Amlodipine Besylate 5 mg 5 mg PO DAILY 05/02/20 05/02/20 04/30/20 08:00 History [Norvasc 5 mg] Calcium/FA/Multivits-Min [Viactiv 1 each PO BID 05/02/20 05/02/20 04/30/20 22:00 History Multi-Vitamin Soft Chw] Hydrocortisone [Cortef] 10 mg PO HS 05/02/20 05/02/20 04/30/20 22:00 History Lidocaine 0.5 each TP UD 05/02/20 05/02/20 05/01/20 22:00 History Initialized on 05/03/20 19:36 - END OF NOTE 05/03/20 10:59 Nursing Note by Emily Posadas I faxed a referral paper to 's office at [place] for him to fill out and fax back to me. I received it and faxed it to [facility] for a referral to . They will set up the appt for patient. Initialized on 05/03/20 10:59 - END OF NOTE Active Visit Medications Generic Name Dose Route Start Last Admin Trade Name Freq PRN Reason Stop Dose Admin Acetaminophen 650 mg 05/02/20 11:36 Tylenol 325 Mg PO 06/01/20 11:35 Q4H PRN PRN PAIN AND/OR FEVER Amlodipine Besylate 5 mg 05/03/20 10:00 05/03/20 11:26 Norvasc 5 Mg PO 06/02/20 09:59 5 mg DAILY KEN Administration Calcium Carbonate 1 tab 05/03/20 10:00 05/03/20 11:17 Calcium 500mg W/Vit D Tablet PO 06/02/20 09:59 1 tab BID KEN Administration Famotidine 40 mg 05/03/20 16:00 Pepcid 20 Mg PO 06/02/20 15:58 BID KEN Fentanyl 50 mcg 05/02/20 18:00 05/02/20 19:48 Duragesic 50mcg Patch TD 05/07/20 17:59 50 mcg Q72H KEN Administration Fentanyl Citrate 50 mcg 05/03/20 16:12 05/03/20 17:22 Sublimaze 100 Mcg/2 Ml IV 05/08/20 16:11 50 mcg Q6HPRN PRN Administration PAIN Hydrocortisone 10 mg 05/02/20 22:00 05/02/20 22:35 Hydrocortisone PO 06/01/20 21:59 10 mg HS KEN Administration Hydrocortisone 30 mg 05/03/20 10:00 05/03/20 11:15 Hydrocortisone PO 06/02/20 09:59 30 mg DAILY KEN Administration Lidocaine 1 patch 05/03/20 10:00 05/03/20 11:18 Lidoderm Patch 5% TOP 06/02/20 09:59 1 patch DAILY KEN Administration Magnesium Oxide 400 mg 05/03/20 10:00 05/03/20 11:27 Mag-Ox 400 PO 06/02/20 09:59 400 mg DAILY KEN Administration Metoprolol Tartrate 75 mg 05/02/20 22:00 05/03/20 11:22 Lopressor 25mg Tab PO 06/01/20 21:59 75 mg BID KEN Administration Miscellaneous Information 1 each 05/03/20 08:00 Medication Intervention 06/02/20 07:59 .RN TO CHECK WITH PT [facility] Multivitamins Therapeutic 1 tab 05/03/20 10:00 05/03/20 11:26 Theragran Multivitamin PO 06/02/20 09:59 1 tab DAILY KEN Administration Remove Duragesic 1 each 05/05/20 18:00 Patch 1 Each TOP 06/04/20 17:59 Q3D KEN Remove Lidoderm 1 each 05/03/20 22:00 Patch 1 Each TOP 06/02/20 21:59 HS KEN Ondansetron HCl 4 mg 11/15/20 11:36 Zofran 4 Mg/2 Ml Vial IV 06/01/20 11:35 Q6H PRN PRN NAUSEA/VOMITING Simvastatin 20 mg 05/02/20 22:00 05/02/20 22:36 Zocor 20mg PO 06/01/20 21:59 20 mg HS KEN Administration Zolpidem Tartrate 5 mg 05/02/20 22:00 05/02/20 22:35 Ambien 5 Mg Tablet PO 06/01/20 21:59 5 mg HS KEN Administration Home Medications Medication Instructions Recorded Confirmed Last Taken Type Amlodipine Besylate 5 mg 5 mg PO DAILY 05/02/20 05/02/20 04/30/20 08:00 History [Norvasc 5 mg] Calcium/FA/Multivits-Min [Viactiv 1 each PO BID 05/02/20 05/02/20 04/30/20 22:00 History Multi-Vitamin Soft Chw] Hydrocortisone [Cortef] 10 mg PO HS 05/02/20 05/02/20 04/30/20 22:00 History Lidocaine 0.5 each TP UD 05/02/20 05/02/20 05/01/20 22:00 History Initialized on 05/03/20 21:56 - END OF NOTE 05/03/20 19:36 SBAR Note by Mercedse Dominguez SITUATION I am calling about EZIO NOE the patient's code status is Full Code The problem I am calling about is: notified Dr. Russell of elevated potassium. he asked that i order bmp for am and hold potassium if patient was on any ASSESSMENT RECOMMENDATION Physician notified at 1936 New Orders received: Vital Signs (Last 4 hours) Temp Pulse Resp BP Pulse Ox 05/03/20 16:00 98.4 F 94 H 20 145/95 96 Diagnois, Code Status Date of Arrival on Unit 05/02/20 Admitted From Emergency Dept Diagnosis Acute exacerbation of chronic low back pain Resucitation Status Full Code Intake and Output 24 Hours 05/03/20 05/04/20 06:59 06:59 Intake Total 720 1480 Output Total 2650 1250 Balance -1930 230 Weight 61.3 kg Intake: Intake, Oral Amount 720 1480 Output: Output, Urine Amount 450 Output, Nava: 2200 1250 Other: Number of Voids 1 Physical Assessment Anxiety Level None,at ease,Awake,Calm Mental Status Alert Patient Orientation Person,Place,Time Coma Scale Total 15 Breath Sounds [Anterior/ Clear Posterior Bilateral Throughout ] Bowel Sounds [All Quadrants] Present Abdomen Description Soft Date Nava Cath Inserted 05/02/20 Urine Appearance Clear Urine Color Yellow Skin Color Normal for Race Skin Temperature Warm Pain Scale (Last 24 Hours) Pain Intensity 7 Pain Intensity 9 Pain Intensity 10 Pain Intensity 10 Pain Intensity 10 Pain Intensity 10 Pain Intensity 7 Pain Intensity 10 Pain Intensity 9 Pain Intensity 6 Pain Intensity 10 Pain Intensity 7 Pain Intensity 7 Pain Intensity 6 Pain Intensity 10 Pain Intensity 8 Pain Intensity 10 Pain Intensity 10 PAST MEDICAL HISTORY Neurological History Migraines Endocrine Medical History No Pertinent History Respiratory History Pneumonia Cardiac History High Cholesterol,Hypertension GI Medical History Ulcer Reproductive Disorders No Pertinent History Comment SURGICAL HX NOTED ABOVE. PATIENT REPORTS HX OF LUMBAR FRACTURE IN THE 80s AND BY DESCRIPTION WAS TRANSVERSE PROCESS - NO SURGERY, WAS BRACED. HX OF ADRENAL INSUFFICIENCY CHRONIC BACK PAIN Scoliosis Lab Results (Last 24 Hours) 05/03/20 05/03/20 Range/Units 04:50 04:50 WBC 11.4 H (4.0-10.5) K/mm3 RBC 4.27 (4.1-5.4) M/mm3 Hgb 13.3 (12.0-16.0) gm/dl Hct 41.6 (35-47) % MCV 97.4 (78-100) fl MCH 31.1 (26-32) pg MCHC 32.0 (32-36) g/dl RDW 15.1 H (11.5-14.0) % Plt Count 299 (150-450) K/mm3 MPV 8.6 (7.5-11.0) fl Gran % 85.9 H (36.0-66.0) % Eos # (Auto) 0 (0-0.5) Absolute Lymphs (auto) 0.63 L (1.0-4.6) Absolute Monos (auto) 0.96 (0.0-1.3) Lymphocytes % 5.5 L (24.0-44.0) % Monocytes % 8.5 (0.0-12.0) % Eosinophils % 0.0 (0.00-5.0) % Basophils % 0.1 (0.0-0.4) % Absolute Granulocytes 9.76 H (1.4-6.9) Basophils # 0.01 (0-0.4) Sodium 132 L (137-145) mmol/L Potassium 5.6 H D (3.5-5.1) mmol/L Chloride 99 (98-107) mmol/L Carbon Dioxide 30 (22-30) mmol/L Anion Gap 9.4 (5-15) MEQ/L BUN 21 H (7-17) mg/dL Creatinine 0.51 L (0.52-1.04) mg/dL Estimated GFR > 60.0 ML/MIN Glucose 133 H (74-106) mg/dL Calcium 9.7 (8.4-10.2) mg/dL Total Bilirubin 0.50 (0.2-1.3) mg/dL AST 28 (14-36) U/L ALT 22 (0-35) U/L Alkaline Phosphatase 56 (38-126) U/L Serum Total Protein 6.9 (6.3-8.2) g/dL Albumin 4.1 (3.5-5.0) g/dL Orders (Last 24 Hours) Category Date Time Status BMP AM.LAB Lab 05/04/20 04:00 Ordered Amlodipine Besylate 5 mg [Norvasc 5 mg] Med 05/03/20 10:00 Active 5 mg PO DAILY Calcium Carb/Vitamin D 500 mg* [Calcium 500MG W/Vit D Med 05/03/20 10:00 Active Tablet] 1 tab PO BID Famotidine 20 mg [Pepcid 20 MG] Med 05/03/20 16:00 Active 40 mg PO BID Fentanyl Citrate 100 Mcg/2 ml* [Sublimaze 100 Mcg/2 ml* Med 05/03/20 16:12 Active ] 50 mcg IV Q6HPRN PRN Hydrocortisone Med 05/02/20 22:00 Active 10 mg PO HS Hydrocortisone Med 05/03/20 10:00 Active 30 mg PO DAILY Lidocaine HCl 5% Patch [Lidoderm Patch 5%] Med 05/03/20 10:00 Active 1 patch TOP DAILY Magnesium Oxide 400 mg [Mag-Ox 400] Med 05/03/20 10:00 Active 400 mg PO DAILY Medication Intervention Med 05/03/20 08:00 Active 1 each MC .RN TO CHECK WITH PT Metoprolol Tartrate 25 mg [Lopressor 25MG Tab] Med 05/02/20 22:00 Active 75 mg PO BID Multivitamins,Therapeutic Tab* [Theragran Multivitamin* Med 05/03/20 10:00 Active ] 1 tab PO DAILY Remove Patch [Remove Patch Reminder] Med 05/03/20 22:00 Active 1 each TOP HS Remove Patch [Remove Patch Reminder] Med 05/05/20 18:00 Active 1 each TOP Q3D Simvastatin 20Mg [Zocor 20Mg] Med 05/02/20 22:00 Active 20 mg PO HS Zolpidem Tartrate 5 mg [Ambien 5 MG Tablet] Med 05/02/20 22:00 Active 5 mg PO HS OT Screen per Nursing Assess ONCE OT 05/03/20 08:00 Active PT Screen per Nursing Assess ONCE PT 05/03/20 08:00 Active Nursing Notes (Last 12 hours) 05/03/20 10:59 Nursing Note by Emily Posadas I faxed a referral paper to 's office at [facility] for him to fill out and fax back to me. I received it and faxed it to Pain Management for a referral to . They will set up the appt for patient. Initialized on 05/03/20 10:59 - END OF NOTE Active Visit Medications Generic Name Dose Route Start Last Admin Trade Name Freq PRN Reason Stop Dose Admin Acetaminophen 650 mg 05/02/20 11:36 Tylenol 325 Mg PO 06/01/20 11:35 Q4H PRN PRN PAIN AND/OR FEVER Amlodipine Besylate 5 mg 05/03/20 10:00 05/03/20 11:26 Norvasc 5 Mg PO 06/02/20 09:59 5 mg DAILY KEN Administration Calcium Carbonate 1 tab 05/03/20 10:00 05/03/20 11:17 Calcium 500mg W/Vit D Tablet PO 06/02/20 09:59 1 tab BID KEN Administration Famotidine 40 mg 05/03/20 16:00 Pepcid 20 Mg PO 06/02/20 15:58 BID KEN Fentanyl 50 mcg 05/02/20 18:00 05/02/20 19:48 Duragesic 50mcg Patch TD 05/07/20 17:59 50 mcg Q72H KEN Administration Fentanyl Citrate 50 mcg 05/03/20 16:12 05/03/20 17:22 Sublimaze 100 Mcg/2 Ml IV 05/08/20 16:11 50 mcg Q6HPRN PRN Administration PAIN Hydrocortisone 10 mg 05/02/20 22:00 05/02/20 22:35 Hydrocortisone PO 06/01/20 21:59 10 mg HS KEN Administration Hydrocortisone 30 mg 05/03/20 10:00 05/03/20 11:15 Hydrocortisone PO 06/02/20 09:59 30 mg DAILY KEN Administration Lidocaine 1 patch 05/03/20 10:00 05/03/20 11:18 Lidoderm Patch 5% TOP 06/02/20 09:59 1 patch DAILY KEN Administration Magnesium Oxide 400 mg 05/03/20 10:00 05/03/20 11:27 Mag-Ox 400 PO 06/02/20 09:59 400 mg DAILY KEN Administration Metoprolol Tartrate 75 mg 05/02/20 22:00 05/03/20 11:22 Lopressor 25mg Tab PO 06/01/20 21:59 75 mg BID KEN Administration Miscellaneous Information 1 each 05/03/20 08:00 Medication Intervention 06/02/20 07:59 .RN TO CHECK WITH PT [facility] Multivitamins Therapeutic 1 tab 05/03/20 10:00 05/03/20 11:26 Theragran Multivitamin PO 06/02/20 09:59 1 tab DAILY KEN Administration Remove Duragesic 1 each 05/05/20 18:00 Patch 1 Each TOP 06/04/20 17:59 Q3D KEN Remove Lidoderm 1 each 05/03/20 22:00 Patch 1 Each TOP 06/02/20 21:59 HS KEN Ondansetron HCl 4 mg 05/02/20 11:36 Zofran 4 Mg/2 Ml Vial IV 06/01/20 11:35 Q6H PRN PRN NAUSEA/VOMITING Simvastatin 20 mg 05/02/20 22:00 05/02/20 22:36 Zocor 20mg PO 06/01/20 21:59 20 mg HS KEN Administration Zolpidem Tartrate 5 mg 05/02/20 22:00 05/02/20 22:35 Ambien 5 Mg Tablet PO 06/01/20 21:59 5 mg HS KEN Administration Home Medications Medication Instructions Recorded Confirmed Last Taken Type Amlodipine Besylate 5 mg 5 mg PO DAILY 05/02/20 05/02/20 04/30/20 08:00 History [Norvasc 5 mg] Calcium/FA/Multivits-Min [Viactiv 1 each PO BID 05/02/20 05/02/20 04/30/20 22:00 History Multi-Vitamin Soft Chw] Hydrocortisone [Cortef] 10 mg PO HS 05/02/20 05/02/20 04/30/20 22:00 History Lidocaine 0.5 each TP UD 05/02/20 05/02/20 05/01/20 22:00 History Initialized on 05/03/20 19:36 - END OF NOTE 05/03/20 15:13 Case Management Note by Alexa Davenport HAS ACCEPTED PATIENT AND PATIENT'S FAMILY CAN TAKE HER UP Initialized on 05/03/20 15:13 - END OF NOTE 05/03/20 12:13 Case Management Note by Alexa Davenport REFERRAL SENT TO [facility] Initialized on 05/03/20 12:13 - END OF NOTE Code(s): M54.5 - LOW BACK PAIN; G89.29 - OTHER CHRONIC PAIN (2) Spondylo-arthropathy Current Visit: Yes Status: Acute
--- NOTE | 2020-05-04 11:52 | XRAY ---
Indication: Worsening low back pain. Degenerative disc disease. Sagittal and axial MRI lumbar spine performed without contrast using T1 and T2-weighted sequences. Comparison: None Recent lumbar CT lumbar spine documents 5 lumbar vertebral segments. Sagittal MRI images demonstrates moderate double curvature thoracolumbar scoliosis and 4 mm anterolisthesis of L4 on L5. Multilevel degenerative disc disease signal with disc space narrowing. Tiny L2-L5 Schmorl nodes. No acute fracture, suspicious bony lesions, or abnormal bone marrow signal. Conus medullaris terminates at the thoracolumbar junction. Axial images at the T12-L1 level demonstrates right paracentral subligamentous disc herniation. Herniated disc measures at least 0.6 x 1.3 x 2.2 cm in greatest AP, transverse, and CC projections respectively. Thecal sac is effaced with mean AP thecal sac diameter 6 mm and there is right foraminal narrowing. At the L1-L2 level, there is mild annular disc bulge minimally effacing the thecal sac and producing bilateral foraminal narrowing. Moderate bilateral degenerative facet and ligamentum flavum hypertrophy further effaces the thecal sac. Mean AP thecal sac diameter is 7 mm. At the L2-L3 level, there is mild annular disc bulge producing right foraminal stenosis and left foraminal narrowing.. Mild focal broad-based central disc bulge effaces the thecal sac with mean AP thecal sac embers 6 mm. Moderate bilateral degenerative facet and ligamentum flavum hypertrophy further effaces the thecal sac. At the L3-L4 level, there is mild annular disc bulge minimally effacing the thecal sac and producing left foraminal stenosis and right foraminal narrowing. No focal disc herniation or canal stenosis. Mild left degenerative facet and ligamentum flavum hypertrophy further effaces the thecal sac. At the L4-L5 level, there is left foraminal stenosis with left L4 nerve root impingement and minimal right foraminal narrowing due to combination of broad-based disc bulge and grade 1 spondylolisthesis. No disc herniation or canal stenosis. Mild bilateral degenerative facet hypertrophy. At the L5-S1 level, there is mild broad-based disc bulge minimally effacing the thecal sac and producing bilateral foraminal narrowing. No disc herniation or canal stenosis. Mild bilateral degenerative facet hypertrophy. Impression: 1. T12-L1 right paracentral subligamentous disc herniation as detailed with subsequent spinal canal stenosis and right foraminal narrowing. 2. Multilevel degenerative disc disease detailed level by level. Greatest extent at L4-L5 where there is left foraminal stenosis with left L4 nerve root impingement compounded by grade 1 spondylolisthesis and double curvature scoliosis. Healing but no node
[2020-05-04 12:53] VITALS: BP 131/76; PULSE 85; O2SAT 97
== END 2020-05-04 15:46 ==
LOC: ED 07:38 → MED SURG 11:23
PROVIDERS: ADMIT Family Medicine; ATTEND General Practice
DX: M54.5 Low back pain (principal); G89.29 Other chronic pain; Z79.899 Other long term (current) drug therapy; I10 Essential (primary) hypertension; E78.00 Pure hypercholesterolemia, unspecified; M47.817 Spondylosis without myelopathy or radiculopathy, lumbosacral region
CPT/HCPCS: 36000; 36415; 71045; 72131; 72148; 80048; 80053; 81001; 82947; 85025; 96372; 96374; 96375; 97110; 97161; 99285; G0378; J1100; J1170; J2270; J2405; J3010; A9270-GY